=== PATIENT | female | born 1990 | race American Indian/Alaskan Native ===

== ENCOUNTER 2018-02-13 09:11 | Emergency (ER) | payer MEDICAID, SELFPAY ==
[2018-02-13] VITALS (7 sets, daily range): BP systolic 132–163; BP diastolic 85–114; PULSE 81–103; RESP 16–20; TEMP 36.8; O2SAT 95–100
[2018-02-13 10:08] LABS: Add Manual Diff / Slide Review NO; Eosinophils Percent Auto 2.9 % (2-4); Hematocrit 36.6 % (36-46); Hemoglobin 12.1 g/dL (12.0-16.0); Lymphocytes Percent Auto 19.2 % (25-40); Mean Corpuscular HGB Conc 33.2 % (30-36); Mean Corpuscular Hemoglobin 28.7 PG (26-34); Mean Corpuscular Volume 86.5 fL (80-100); Monocytes Percent Auto 5.4 % (3-14); Neutrophils Absolute Auto 5800 /uL (3000-5900); Neutrophils Percent Auto 71.5 % (50-75); Platelet Count 418 X10^3/uL (150-400); Red Blood Cell Count 4.23 X10^6/uL (4.0-5.2); Red Cell Distribution Width 16.4 % (11.6-14.8); White Blood Cell Count 8.1 X10^3/uL (4.5-11.0)
[2018-02-13 10:13] LABS: Alanine Aminotransferase 15 IU/L (9-52); Albumin 4.2 g/dL (3.5-5.0); Albumin Globulin Ratio 1.5 (1.0-2.8); Alkaline Phosphatase 107 U/L (38-126); Aspartate Aminotransferase 38 IU/L (14-36); Bilirubin Total 0.6 mg/dL (0.2-1.3); Blood Urea Nitrogen 7 mg/dL (7-17); Calcium 8.2 mg/dL (8.4-10.2); Carbon Dioxide 25 mmol/L (22-32); Chloride 97 mmol/L (98-107); Estimated Glomerular Filt Rate > 60.0 mL/min (>60); Ethanol (ETOH) 223 mg/dL; Globulin 2.8 g/dL (1.7-4.1); Glucose 399 mg/dL (70-100); HEMOLYSIS 23 (0-50); Potassium 3.9 mmol/L (3.4-5.1); Sodium 139 mmol/L (137-145)
--- NOTE | 2018-02-13 10:25 | ED.ALCOHOL ---
HPI - Alcohol General Chief Complaint: Toxicology Problem Stated Complaint: REPEATED SEIZURES,ALCOHOL WITHDRAWL Time Seen by Provider: 02/13/18 10:06 Source: patient and family (significant other) Mode of arrival: ambulatory Limitations: no limitations History of Present Illness HPI narrative: This is a 27-year-old female who comes to the emergency department for concern for alcohol withdrawal. Patient states she had been sober for 8 months. She started drinking on Saturday and has been drinking about a L of beer daily and about 150 mL of vodka daily. Her last drink was about 24 hr ago. She states this morning she went to lay down on the bed because she was feeling shaky Um and states that she fell off the bed and had seizure-like activity according to her significant other. She was sort of shaking having some foaming at the mouth. She states this happened once before which she went through alcohol withdrawal. Patient states she is also having some abdominal pain which she thinks is her pancreatitis. She has history of pancreatitis. To the epigastric right upper quadrant region. Patient is not having any fevers. She feels quite dry states she was trying to drink a lot a water. She is also an insulin-dependent diabetic and states that her sugar was high on her meter earlier today. She also has rheumatoid arthritis and takes methotrexate and Plaquenil which she states she has been taking. She is also supposed to take medication for high blood pressure but has not been taking it. She states her pressures were fine until she started going through withdrawals. Patient has had nausea and some vomiting. She has had some diarrhea. She has not noticed that she has had a lot of urinary symptoms. Patient states she has had an IUD that had to be removed surgically. complaint: alcohol withdrawal Last drink: hours (ago) (24) Related Data Home Medications Medication Instructions Recorded Confirmed Plaquenil 1 dose PO DIRECTED 02/13/18 02/13/18 folic acid 2 tab PO DAILY 02/13/18 02/13/18 hydrocodone-acetaminophen 1 - 2 tab PO Q6H PRN 02/13/18 02/13/18 ibuprofen 1 tab PO TIDWM 02/13/18 02/13/18 insulin glargine [Lantus Solostar 20 units SUBCUT BID 02/13/18 02/13/18 U-100 Insulin] insulin lispro [Humalog U-100 10 unit SUBCUT AC 02/13/18 02/13/18 Insulin] leflunomide 1 tab PO DAILY 02/13/18 02/13/18 levonorgestrel [Luisa] 1 ea INTRAUTERINE DIRECTED 02/13/18 02/13/18 lorazepam 1 dose PO DIRECTED 02/13/18 02/13/18 methotrexate sodium 250 mg PO DIRECTED 02/13/18 02/13/18 ondansetron HCl 1 tab PO Q6H PRN 02/13/18 02/13/18 Previous Rx's Medication Instructions Recorded lorazepam [Ativan] 1 mg PO .see instruction PRN #20 02/13/18 tab Allergies Allergy/AdvReac Type Severity Reaction Status Date / Time No Known Drug Allergies Allergy Verified 02/13/18 09:27 Review of Systems Review of Systems All systems reviewed & are unremarkable except as noted in HPI and below Constitutional Denies fever(s) Cardiovascular Denies chest pain, Denies irregular heart rhythm, Denies lightheadedness, Denies palpitations, Denies dyspnea, Denies dyspnea on exertion and Denies orthopnea Respiratory Denies cough, Denies dyspnea, Denies dyspnea on exertion and Denies wheezing Gastrointestinal Gastrointestinal: Reports abdominal pain, Denies constipation, Denies cramping, Reports nausea, Reports vomiting and Denies hematemesis Genitourinary Denies urinary frequency, Denies urinary hesitancy and Denies urinary urgency Neurologic Reports as per HPI Endocrine Denies palpitations Allergic/Immunologic Denies wheezing PFSH Social History Smoking Status: Never smoker Exam Initial Vital Signs Initial Vital Signs: Vital Signs Temperature 98.3 F 02/13/18 09:23 Pulse Rate 97 H 02/13/18 09:23 Respiratory Rate 20 02/13/18 09:23 Blood Pressure 163/106 H 02/13/18 09:23 Pulse Oximetry 100 02/13/18 09:23 Const General: cooperative and well developed Nutritional Appearance: well nourished Orientation: alert, awake, oriented x3 and not confused [facility] Head: normocephalic and atraumatic Ears: external ears normal and TM's normal bilaterally Nose: external nose normal and No nasal discharge Face and sinus: sinuses nontender, face symmetric, no sinus tenderness and No dry mucous membranes Mouth: oral mucosae normal and mucous membranes abnormal (dry) Teeth and gingiva: dentition normal Throat: tonsils normal and uvula midline Chest Chest: normal inspection of the chest Resp Effort & Inspection: normal respiratory effort, able to speak in complete sentences, no respiratory distress and no use of accessory muscles Auscultation: clear to auscultation bilaterally, no rales, no rhonchi and no wheezes Cardio Rate: regular rate Rhythm: regular rhythm Heart Sounds: no click, no gallops, no murmurs and no rubs Pulses: normal peripheral pulses GI Inspection: non-distended Palpation: soft, no hepatosplenomegaly, No guarding, No pulsatile mass and No tender Auscultation: normal bowel sounds General: bimanual renal exam normal bilaterally and No CVA tenderness Neuro General: alert, oriented x3, gait normal, no focal motor deficits and CN's II-XI intact bilaterally Cranial Nerves: CN's II-XI intact bilaterally Cognition: normal cognition Speech: speech normal Motor: muscle tone normal throughout, strength 5/5 throughout and No tremor Sensory Exam: no sensory deficits noted Course Orders Ordered: Discontinued Medications Magnesium Sulfate 2 gm/ Folic Acid 1 mg/ Thiamine HCl 100 mg / Multivitamins 10 ml/ Sodium Chloride 1,015.2 mls @ 125 mls/hr IV NOW ONE Stop: 02/13/18 18:30 Last Admin: 02/13/18 11:35 Dose: 125 mls/hr Sodium Chloride (Normal Saline 0.9%) 1,000 mls @ 1,000 mls/hr IV BOLUS PRN PRN Reason: Fluid replacement Last Infusion: 02/13/18 12:49 Dose: 0 mls/hr Admin: 02/13/18 10:48 Dose: 1,000 mls/hr Insulin Human Regular (Humulin R) 10 unit SUBCUT NOW ONE Stop: 02/13/18 11:09 Last Admin: 02/13/18 11:23 Dose: 10 unit Ketorolac Tromethamine (Toradol) 30 mg IV NOW ONE Stop: 02/13/18 10:49 Last Admin: 02/13/18 10:49 Dose: 30 mg Lorazepam (Ativan) 1 mg IV NOW ONE Stop: 02/13/18 10:29 Last Admin: 02/13/18 10:47 Dose: 1 mg Lorazepam (Ativan) 1 mg IV NOW ONE Stop: 02/13/18 12:50 Last Admin: 02/13/18 12:50 Dose: 1 mg Lorazepam (Ativan) 2 mg PO NOW ONE Stop: 02/13/18 15:25 Last Admin: 02/13/18 15:36 Dose: 2 mg Reevaluation(s) Reevaluation #1: patient has elevated BS, insulin ordered for glucose. Patient does not feel like she is going to have a seizure after ativan. Time: 11:09 Reevaluation #2: Patient is sleepy. Sugars have improved. Will continue to monitor and when more awake if vitals improved plan for d/c. Time: 14:27 Vital Signs - 8 hr 02/13/18 14:25 02/13/18 14:27 02/13/18 17:31 Pulse Rate 101 H 96 H 103 H Respiratory Rate 16 20 16 Blood Pressure 142/97 H Blood Pressure [Right Arm] 132/85 132/85 Pulse Oximetry 95 97 100 MDM - Alcohol Differential Diagnosis Differential diagnosis: Likely alcohol intoxication, other (dka vs hyperglycemia), alcohol withdrawal syndrome and alcohol withdrawal seizure Medical Records Attestation: I reviewed the patient's medical records. Lab Data Attestation: I reviewed the patient's lab results. Result diagrams: 02/13/18 09:40 02/13/18 10:37 Labs: Lab Results 02/13/18 02/13/18 02/13/18 Range/Units 09:40 09:40 09:45 WBC 8.1 (4.5-11.0) X10^3/uL RBC 4.23 (4.0-5.2) X10^6/uL Hgb 12.1 (12.0-16.0) g/dL Hct 36.6 (36-46) % MCV 86.5 (80-100) fL MCH 28.7 (26-34) PG MCHC 33.2 (30-36) % RDW 16.4 H (11.6-14.8) % Plt Count 418 H (150-400) X10^3/uL Neut % (Auto) 71.5 (50-75) % Lymph % (Auto) 19.2 L (25-40) % Antelope % (Auto) 5.4 (3-14) % Eos % (Auto) 2.9 (2-4) % Baso % (Auto) 1.0 (0-2) % Neut # (Auto) 5800 (4750-6859) /uL PT 11.9 (10.1-12.7) SECONDS INR 1.1 (0.9-1.3) Sodium 139 (137-145) mmol/L Potassium 3.9 (3.4-5.1) mmol/L Chloride 97 L (98-107) mmol/L Carbon Dioxide 25 (22-32) mmol/L BUN 7 (7-17) mg/dL Creatinine 0.50 L (0.52-1.04) mg/dL Estimated GFR > 60.0 (>60) mL/min BUN/Creatinine Ratio 14.0 (6-22) Glucose 399 H (70-100) mg/dL Calcium 8.2 L (8.4-10.2) mg/dL Phosphorus (2.5-4.5) mg/dL Magnesium (1.6-2.3) mg/dL Total Bilirubin 0.6 (0.2-1.3) mg/dL Conjugated Bilirubin (0.0-0.3) md/dL Unconjugated Bilirubin (0.0-1.1) mg/dL AST 38 H (14-36) IU/L ALT 15 (9-52) IU/L Alkaline Phosphatase 107 (38-126) U/L Total Protein 7.0 (6.3-8.2) g/dL Albumin 4.2 (3.5-5.0) g/dL Globulin 2.8 (1.7-4.1) g/dL Albumin/Globulin Ratio 1.5 (1.0-2.8) Lipase (23-300) U/L Urine Opiates Screen (Negative) Ur Oxycodone Screen (Negative) Urine Methadone Screen (Negative) Ur Barbiturates Screen (Negative) U Tricyclic Antidepress (Negative) Ur Phencyclidine Scrn (Negative) Ur Amphetamines Screen (Negative) U Methamphetamines Scrn (Negative) Ur MDMA Scrn (Ecstasy) (Negative) U Benzodiazepines Scrn (Negative) Urine Cocaine Screen (Negative) U Marijuana (THC) Screen (Negative) Ethyl Alcohol 223 mg/dL 02/13/18 02/13/18 Range/Units 10:30 10:37 WBC (4.5-11.0) X10^3/uL RBC (4.0-5.2) X10^6/uL Hgb (12.0-16.0) g/dL Hct (36-46) % MCV (80-100) fL MCH (26-34) PG MCHC (30-36) % RDW (11.6-14.8) % Plt Count (150-400) X10^3/uL Neut % (Auto) (50-75) % Lymph % (Auto) (25-40) % Antelope % (Auto) (3-14) % Eos % (Auto) (2-4) % Baso % (Auto) (0-2) % Neut # (Auto) (4755-5440) /uL PT (10.1-12.7) SECONDS INR (0.9-1.3) Sodium 138 (137-145) mmol/L Potassium 4.0 (3.4-5.1) mmol/L Chloride 97 L (98-107) mmol/L Carbon Dioxide 25 (22-32) mmol/L BUN 7 (7-17) mg/dL Creatinine 0.50 L (0.52-1.04) mg/dL Estimated GFR > 60.0 (>60) mL/min BUN/Creatinine Ratio 14.0 (6-22) Glucose 404 H (70-100) mg/dL Calcium 8.1 L (8.4-10.2) mg/dL Phosphorus 2.3 L (2.5-4.5) mg/dL Magnesium 1.6 (1.6-2.3) mg/dL Total Bilirubin 0.6 (0.2-1.3) mg/dL Conjugated Bilirubin 0.0 (0.0-0.3) md/dL Unconjugated Bilirubin 0.3 (0.0-1.1) mg/dL AST 39 H (14-36) IU/L ALT 18 (9-52) IU/L Alkaline Phosphatase 108 (38-126) U/L Total Protein 7.0 (6.3-8.2) g/dL Albumin 4.2 (3.5-5.0) g/dL Globulin 2.8 (1.7-4.1) g/dL Albumin/Globulin Ratio 1.5 (1.0-2.8) Lipase 16 L (23-300) U/L Urine Opiates Screen Negative (Negative) Ur Oxycodone Screen Negative (Negative) Urine Methadone Screen Negative (Negative) Ur Barbiturates Screen Negative (Negative) U Tricyclic Antidepress Negative (Negative) Ur Phencyclidine Scrn Positive H (Negative) Ur Amphetamines Screen Negative (Negative) U Methamphetamines Scrn Negative (Negative) Ur MDMA Scrn (Ecstasy) Negative (Negative) U Benzodiazepines Scrn Positive H (Negative) Urine Cocaine Screen Negative (Negative) U Marijuana (THC) Screen Negative (Negative) Ethyl Alcohol 229 mg/dL Point of Care Testing Test Results Negative Glucose POC 59 Urine Dip Bedside Urine Glucose 1000 mg/dl Bedside Urine Bilirubin - Negative Bedside Urine Ketone - Negative Urine Specific [place] 1.015 Bedside Urine Occult Blood +++ Bedside Urine pH 6.0 Bedside Urine Protein + 30 Bedside Urine Urobilinogen - Negative Bedside Urine Nitrite - Negative Bedside Urine Leukocytes +/- 15 Esterase MDM Narrative Medical decision making narrative: Patient has a significant other return to the emergency department is able to talk to him about exactly what happened. He did not actually witness any seizure activity he states that she knows that she was on the floor but otherwise he does not know if she had any seizures. He states that she had her last drink was this morning. Med that she has had similar symptoms before. They would be interested in a script for alcohol withdrawal prevention an outpatient if possible. Patient does not any DKA, she does not have low bicarb. Her hyperglycemia has improved after fluids as well as 10 units of insulin. Patient's sugar improved lb 120s. Patient was improving she then was given a little bit of Ativan p.o. is or plane to discharge her she did not wish to have inpatient detox. Patient got sleepy she did eat anything in her sugar dropped. She was given juice as well as some other food and maintain her sugar afterwards. Patient was discharged home with her significant other in a prescription for some Ativan for alcohol withdrawal. She states she has had Ativan before and did well. Discharge Plan Departure Patient Disposition: Home Clinical Impression: Alcohol withdrawal, Hyperglycemia Discharge Date/Time: 02/13/18 17:32 Interventions: ED Discharge Assessment Last Done: 02/13/18 17:31 Instructions: DI for Delirium Tremens Activity Restrictions/Additional Instructions: Follow-up with the resources provided by social Work for alcohol detox as an outpatient. You may return to the emergency department at any time if her having altered mental status, increasingly worse tremors, hallucinations or any seizure activity. If you're going to drink alcohol do not take the prescribed medication. If you do not drink alcohol take this medication as prescribed. This medication can make you sleepy so do not drive, perform hazards activities or make any major decisions while taking it. Prescriptions: New lorazepam [Ativan] 1 mg tablet 1 mg PO .see instruction PRN (Reason: alcohol withdrawal) Qty: 20 RF: 0 No Action ibuprofen 800 mg tablet 1 tab PO TIDWM RF: 0 hydrocodone-acetaminophen 5-325 mg tablet 1 - 2 tab PO Q6H PRN (Reason: Pain, Moderate) RF: 0 ondansetron HCl 4 mg tablet 1 tab PO Q6H PRN (Reason: Nausea) RF: 0 leflunomide 20 mg tablet 1 tab PO DAILY RF: 0 methotrexate sodium 2.5 mg tablet 250 mg PO DIRECTED RF: 0 folic acid 1 mg tablet 2 tab PO DAILY RF: 0 insulin lispro [Humalog U-100 Insulin] 100 unit/mL solution 10 unit subcut AC RF: 0 insulin glargine [Lantus Solostar U-100 Insulin] 100 unit/mL (3 mL) insulin pen 20 units subcut BID RF: 0 levonorgestrel [Luisa] 14 mcg/24 hour (3 years) Intrauterine Device 1 ea Intrauterine DIRECTED RF: 0 Plaquenil 1 dose PO DIRECTED RF: 0 lorazepam 1 dose PO DIRECTED RF: 0
--- NOTE | 2018-02-13 10:29 | PC.NURSE ---
States poss will have seizure, meds per MD verbal order. Fluids per MD. To [facility] as needs to void
[2018-02-13 10:35] LABS: INR 1.1 (0.9-1.3); Prothrombin Time 11.9 SECONDS (10.1-12.7)
[2018-02-13] MEDS: LORazepam 2 MG/ML SYRINGE 1 MG IV ×2 (10:47→12:50)
[2018-02-13 10:48] LABS: Alanine Aminotransferase 18 IU/L (9-52); Albumin 4.2 g/dL (3.5-5.0); Albumin Globulin Ratio 1.5 (1.0-2.8); Alkaline Phosphatase 108 U/L (38-126); Aspartate Aminotransferase 39 IU/L (14-36); Bilirubin Total 0.6 mg/dL (0.2-1.3); Bilirubin Unconjugated 0.3 mg/dL (0.0-1.1); Blood Urea Nitrogen 7 mg/dL (7-17); Calcium 8.1 mg/dL (8.4-10.2); Carbon Dioxide 25 mmol/L (22-32); Chloride 97 mmol/L (98-107); Estimated Glomerular Filt Rate > 60.0 mL/min (>60); Ethanol (ETOH) 229 mg/dL; Globulin 2.8 g/dL (1.7-4.1); Glucose 404 mg/dL (70-100); HEMOLYSIS 22 (0-50); Lipase 16 U/L (23-300); Magnesium 1.6 mg/dL (1.6-2.3); Phosphorous 2.3 mg/dL (2.5-4.5); Sodium 138 mmol/L (137-145)
[2018-02-13] MEDS: SODIUM CHLORIDE 0.9% 1,000 ML 1000 ML IV (10:48)
[2018-02-13] MEDS: KETOROLAC 60 MG/2 ML VIAL 30 MG IV (10:49)
[2018-02-13] MEDS: INSULIN REGULAR 100 UNIT/ML 3 ML VIAL 10 UNIT SUBCUT (11:23)
[2018-02-13 11:27] LABS: Urine Amphetamines Negative (Negative); Urine Barbiturates Negative (Negative); Urine Benzodiazepines Positive (Negative); Urine Cocaine Negative (Negative); Urine MDMA Negative (Negative); Urine Methadone Negative (Negative); Urine Methamphetamines Negative (Negative); Urine Morphine/Opi cutoff 2000 Negative (Negative); Urine Oxycodone Negative (Negative); Urine Phencyclidine Positive (Negative); Urine Tetrahydrocannabinol Negative (Negative); Urine Tricyclic Antidepressant Negative (Negative)
[2018-02-13] MEDS: MAGNESIUM SULFATE 2 GM, FOLIC ACID 1 MG, THIAMINE 100 MG, MULTIVITAMIN 10 ML in SODIUM ... IV (11:35)
--- NOTE | 2018-02-13 11:50 | PC.NURSE ---
Pt has trouble keeping l hand/wrist straight so fluids will go in. Will have 2nd IV started
--- NOTE | 2018-02-13 12:44 | PC.NURSE ---
Fluids running after 2nd IV started. Meds per MD order
--- NOTE | 2018-02-13 15:13 | CM.SWNOTE ---
ED HAND BOOKBINDER NOTE [facility] contacted pt's SO Fredy, by phone, . Pt was sound asleep. He was aware of several of the area resources, but not aware of [facility]. [phone]. Since this is an outpt setting for both chemical dependency and mental health and pt is , this might be a beneficial resource. Pt's SO shared that pt has been seen previously at [facility] in . He stated he was comfortable taking her home and will discuss this additional resource with her. It was mentioned by [facility] that child careis also provided there which mgiht be an additional benefit for them. It is expected that pt will discharge fromt he emeregency dept today. No further SW needs noted. Discharge Planning/Care Management ED Crisis Response Assessment Start: 02/13/18 15:09 Freq: Status: Active Protocol: Document 02/13/18 15:09 (Rec: 02/13/18 15:12 [id number]) ED Crisis Response Assessment HAND BOOKBINDER Assessment Type Substance Abuse Reason for HAND BOOKBINDER Referral Resources for chemical dependency. Referred by ED staff Presenting Problem ETOH withdrawal. According to Dr Ventura, pt stated that she had a seizure, but it was not witnessed and pt drank earlier today. She is currently sleeping and it was requested that I provide pt's SO with resources. Mental health diagnosis unknown Resources Provided ED HAND BOOKBINDER provided SO, Fredy with additional resources. He was aware of the Crisis Center and [facility] and pt had previously been seen at [facility] in [place]. Action taken Sent home: family/friends E
[2018-02-13] MEDS: LORazepam 0.5 MG TABLET 2 MG PO (15:36)
--- NOTE | 2018-02-13 17:30 | PC.NURSE ---
patient also given 2 garfield crackers with peanut butter and some cheese. patient alert and oriented x3. MD aware. no new orders at this time.
== END 2018-02-13 17:32 | disposition home or self-care (01) ==
PROVIDERS: Emergency Provider Emergency Medicine
DX: F10.239 Alcohol dependence with withdrawal, unspecified (principal); R73.9 Hyperglycemia, unspecified
CPT/HCPCS: 36591; 80053; 80076; 80305; 80320; 81003; 81025; 82962; 83690; 83735; 84100; 85025; 85610; 96361; 96374; 96375; 96376; 99284; 99285; J1885; J2060; J3475

== ENCOUNTER 2018-06-26 17:25 | Inpatient (IN) | payer MEDICAID, SELFPAY ==
[2018-06-26] VITALS (10 sets, daily range): BP systolic 118–149; BP diastolic 82–104; PULSE 92–102; RESP 11–16; TEMP 37.1; O2SAT 97–100; BMI 20.2
--- NOTE | 2018-06-26 18:05 | ED.OVERDOSE ---
HPI - Overdose General Chief Complaint: Toxicology Problem Stated Complaint: ALCOHOL WITHDRAWAL BACK PAIN PASSED OUT Time Seen by Provider: 06/26/18 18:04 Related Data Home Medications Medication Instructions Recorded Confirmed Plaquenil 1 dose PO DIRECTED 02/13/18 02/13/18 folic acid 2 tab PO DAILY 02/13/18 02/13/18 hydrocodone-acetaminophen 1 - 2 tab PO Q6H PRN 02/13/18 02/13/18 ibuprofen 1 tab PO TIDWM 02/13/18 02/13/18 insulin glargine [Lantus Solostar 20 units SUBCUT BID 02/13/18 02/13/18 U-100 Insulin] insulin lispro [Humalog U-100 10 unit SUBCUT AC 02/13/18 02/13/18 Insulin] leflunomide 1 tab PO DAILY 02/13/18 02/13/18 levonorgestrel [Luisa] 1 ea INTRAUTERINE DIRECTED 02/13/18 02/13/18 lorazepam 1 dose PO DIRECTED 02/13/18 02/13/18 methotrexate sodium 250 mg PO DIRECTED 02/13/18 02/13/18 ondansetron HCl 1 tab PO Q6H PRN 02/13/18 02/13/18 Previous Rx's Medication Instructions Recorded lorazepam [Ativan] 1 mg PO .see instruction PRN #20 02/13/18 tab Allergies Allergy/AdvReac Type Severity Reaction Status Date / Time No Known Drug Allergies Allergy Verified 06/26/18 17:38 PFSH Social History Smoking Status: Never smoker Exam Initial Vital Signs Initial Vital Signs: Vital Signs Temperature 98.7 F 06/26/18 17:38 Pulse Rate 97 H 06/26/18 17:38 Respiratory Rate 16 06/26/18 17:38 Blood Pressure 147/104 H 06/26/18 17:38 Pulse Oximetry 100 06/26/18 17:38 Course Vital Signs - 8 hr 06/26/18 17:38 Temperature 98.7 F Pulse Rate 97 H Respiratory Rate 16 Blood Pressure 147/104 H Pulse Oximetry 100 MDM - Overdose Lab Data Point of Care Testing Test Results Negative Discharge Plan Departure Prescriptions: No Action ibuprofen 800 mg tablet 1 tab PO TIDWM RF: 0 hydrocodone-acetaminophen 5-325 mg tablet 1 - 2 tab PO Q6H PRN (Reason: Pain, Moderate) RF: 0 ondansetron HCl 4 mg tablet 1 tab PO Q6H PRN (Reason: Nausea) RF: 0 leflunomide 20 mg tablet 1 tab PO DAILY RF: 0 methotrexate sodium 2.5 mg tablet 250 mg PO DIRECTED RF: 0 folic acid 1 mg tablet 2 tab PO DAILY RF: 0 insulin lispro [Humalog U-100 Insulin] 100 unit/mL solution 10 unit subcut AC RF: 0 insulin glargine [Lantus Solostar U-100 Insulin] 100 unit/mL (3 mL) insulin pen 20 units subcut BID RF: 0 levonorgestrel [Luisa] 14 mcg/24 hour (3 years) Intrauterine Device 1 ea Intrauterine DIRECTED RF: 0 Plaquenil 1 dose PO DIRECTED RF: 0 lorazepam 1 dose PO DIRECTED RF: 0 lorazepam [Ativan] 1 mg tablet 1 mg PO .see instruction PRN (Reason: alcohol withdrawal) Qty: 20 RF: 0
[2018-06-26 18:27] LABS: Amorphous Sediment Urine 1+; Bacteria Urine Occasional (0-1); Culture Indicated Urine Specimen Cultured; RBC Urine 0-1/HPF (0-5/HPF); Squamous Epithelial Cell Urine 1-5 /HPF; WBC Urine 5-10/HPF (0-5/HPF)
--- NOTE | 2018-06-26 18:32 | DI.RAD.S_ITS ---
PROCEDURE: XR CHEST 1V INDICATIONS: chest / back pain TECHNIQUE: One view of the chest was acquired. COMPARISON: None. FINDINGS: Surgical changes and devices: None. Lungs and pleura: Lungs are clear. No pleural effusions or pneumothorax. Mediastinum: Mediastinal contours appear normal. Heart size is normal. Bones and chest wall: No suspicious bony lesions. Overlying soft tissues appear unremarkable. IMPRESSION: No acute cardiopulmonary findings. Dictated by: Nuvia Becker M.D. on 06/26/2018 at 18:57 Approved by: Nuvia Becker M.D. on 06/26/2018 at 18:58
[2018-06-26 18:40] LABS: Add Manual Diff / Slide Review NO; Basophils Absolute Auto 0 /uL (0-100); Basophils Percent Auto 0.6 % (0-2); Eosinophils Absolute Auto 100 /uL (0-450); Hemoglobin 12.5 g/dL (12.0-16.0); Lymphocytes Absolute Auto 2900 /uL (1100-4500); Lymphocytes Percent Auto 39.5 % (25-40); Mean Corpuscular HGB Conc 32.9 % (30-36); Mean Corpuscular Hemoglobin 28.6 PG (26-34); Mean Corpuscular Volume 87.2 fL (80-100); Monocytes Absolute Auto 500 /uL (0-900); Neutrophils Absolute Auto 3700 /uL (1500-7000); Neutrophils Percent Auto 50.9 % (50-75); Platelet Count 419 X10^3/uL (150-400); Red Blood Cell Count 4.36 X10^6/uL (4.0-5.2); Red Cell Distribution Width 16.2 % (11.6-14.8); White Blood Cell Count 7.3 X10^3/uL (4.5-11.0)
[2018-06-26 18:46] LABS: Ethanol (ETOH) 23 mg/dL; Lactate Dehydrogenase 542 U/L (313-618); Lipase 22 U/L (23-300)
[2018-06-26 18:48] LABS: Alanine Aminotransferase 17 IU/L (9-52); Albumin 4.5 g/dL (3.5-5.0); Albumin Globulin Ratio 1.5 (1.0-2.8); Alkaline Phosphatase 109 U/L (38-126); Aspartate Aminotransferase 34 IU/L (14-36); BUN Creatinine Ratio 11.7 (6-22); Bilirubin Total 0.6 mg/dL (0.2-1.3); Blood Urea Nitrogen 7 mg/dL (7-17); Calcium 8.9 mg/dL (8.4-10.2); Carbon Dioxide 26 mmol/L (22-32); Chloride 97 mmol/L (98-107); Estimated Glomerular Filt Rate > 60.0 mL/min (>60); Globulin 3.1 g/dL (1.7-4.1); Glucose 290 mg/dL (70-100); HEMOLYSIS < 15 (0-50); Lipase 22 U/L (23-300); Potassium 4.3 mmol/L (3.4-5.1); Sodium 136 mmol/L (137-145); Total Protein 7.6 g/dL (6.3-8.2)
[2018-06-26] MEDS: LORazepam 2 MG/ML SYRINGE IV (18:49)
[2018-06-26] MEDS: THIAMINE 100 MG in DEXTROSE 5 % IN WATER 50 ML 204 ML IV (18:49)
[2018-06-26] MEDS: ONDANSETRON 4 MG/2 ML INJ IV (18:49)
[2018-06-26] MEDS: SODIUM CHLORIDE 0.9% 500 ML 1000 ML IV (18:50)
--- NOTE | 2018-06-26 19:00 | ED.ALCOHOL ---
HPI - Alcohol General Chief Complaint: Toxicology Problem Stated Complaint: ALCOHOL WITHDRAWAL BACK PAIN PASSED OUT Time Seen by Provider: 06/26/18 18:04 Source: patient Mode of arrival: ambulatory Limitations: no limitations History of Present Illness HPI narrative: 27-year-old female, former smoker with extensive alcohol abuse history presents with a chief complaint of shaking, agitation, epigastric pain, and thinks she has pancreatitis. Patient has extensive history of binge drinking and multiple episodes of DTs and is even had seizures. Her last visit to rehab was a few years ago. She does not drink constantly but instead binge drinks heavily at various occasions. She started drinking heavily a few days ago and stopped about 24 hr ago. She started developing significant epigastric pain and is concerned that she has another episode of pancreatitis. Additionally the patient states that she is having a bit of a headache and nausea as well as sweating, shaking, agitation and increasing heart rate. She states to the symptoms that she develops when going through alcohol withdrawal. Her abdominal pain is worse with palpation, eating or drinking. MD complaint: alcohol withdrawal Last drink: hours (ago) Chronic alcohol use: Yes Previous visits for alcohol intoxication: Yes Associated symptoms: nausea, vomiting, diaphoresis, tremors and abdominal pain Treatments prior to arrival: none Related Data Home Medications Medication Instructions Recorded Confirmed Plaquenil 1 dose PO DIRECTED 02/13/18 02/13/18 folic acid 2 tab PO DAILY 02/13/18 06/27/18 ibuprofen 1 tab PO TIDWM PRN 02/13/18 06/27/18 insulin glargine [Lantus Solostar 15 units SUBCUT BID 02/13/18 06/27/18 U-100 Insulin] insulin lispro [Humalog U-100 10 unit SUBCUT AC 02/13/18 06/27/18 Insulin] levonorgestrel [Luisa] 1 ea INTRAUTERINE DIRECTED 02/13/18 06/27/18 lorazepam 1 dose PO DIRECTED 02/13/18 06/27/18 methotrexate sodium 250 mg PO DIRECTED 02/13/18 02/13/18 ondansetron HCl 1 tab PO Q6H PRN 02/13/18 02/13/18 gabapentin 900 mg PO BEDTIME PRN 06/27/18 06/27/18 methotrexate sodium 1 tab PO BEDTIME 06/27/18 06/27/18 Allergies Allergy/AdvReac Type Severity Reaction Status Date / Time No Known Drug Allergies Allergy Verified 06/26/18 17:38 Review of Systems Constitutional Reports body ache(s), Reports chills, Denies fever(s), Denies lethargy and Denies weakness Eyes Denies change in vision, Denies eye discharge, Denies irritation and Denies loss of vision ENT Ears, Nose, Mouth, and Throat: Denies change in voice, Denies neck pain and Denies sore throat Cardiovascular Denies chest pain, Reports irregular heart rhythm, Reports lightheadedness, Denies palpitations, Denies dyspnea, Denies dyspnea on exertion and Denies orthopnea Respiratory Denies cough, Denies dyspnea, Denies dyspnea on exertion and Denies wheezing Gastrointestinal Gastrointestinal: Reports abdominal pain, Denies change in bowel habits, Denies diarrhea, Reports nausea and Denies vomiting Genitourinary Denies hematuria, Denies flank pain, Denies urinary incontinence and Denies urinary urgency Musculoskeletal Denies neck pain Integumentary/Breasts Denies pruritus, Denies erythema, Denies rash and Denies wounds Comments: sweating Neurologic Denies confusion, Denies loss of vision, Reports other visual disturbances and Denies weakness Psychiatric Reports anxiety, Reports change in appetite, Denies confusion, Denies depression, Reports paranoia, Reports visual hallucinations, Reports hallucinations, Denies homicidal ideation and Denies suicidal ideation Endocrine Denies palpitations Hematologic/Lymphatic Denies easy bruising Allergic/Immunologic Denies wheezing [facility] Medical History Alcoholism (Acute) DKA (diabetic ketoacidoses) (Acute) Diabetes (Acute) Diabetic neuropathy (Acute) Pancreatitis (Acute) Rheumatoid arthritis (Acute) Social History household members: significant other and children Smoking Status: Never smoker Social History household members: significant other and children Smoking Status: Never smoker Exam Narrative Exam Narrative: GENERAL: 19-year-old female appears unwell. She is clearly agitated and has resting tremors HEAD: Atraumatic. Normocephalic. No temporal or scalp tenderness. EYES: Pupils equal round and reactive. Extraocular motions intact. No scleral icterus. No injection or drainage. ENT: Nose without bleeding, purulent drainage or septal hematoma. Throat without erythema, tonsillar hypertrophy or exudate. Uvula midline. Airway patent. NECK: Trachea midline. No JVD or lymphadenopathy. Supple, nontender, no meningeal signs. CARDIOVASCULAR: Tachycardic rate but regular rhythm without murmurs, gallops, or rubs. RESPIRATORY: Clear to auscultation. Breath sounds equal bilaterally. No wheezes, rales, or rhonchi. GASTROINTESTINAL: Abdomen soft, tender in the epigastrium, nondistended. No hepato-splenomegaly, or palpable masses. No guarding. EXTREMITIES: No clubbing, cyanosis, or edema. No joint tenderness, effusion, or edema noted. BACK: Nontender without deformity or crepitance. No flank tenderness. NEURO: AOx3. SKIN: No rash or erythema. Initial Vital Signs Initial Vital Signs: Vital Signs Temperature 98.7 F 06/26/18 17:38 Pulse Rate 97 H 06/26/18 17:38 Respiratory Rate 16 06/26/18 17:38 Blood Pressure 147/104 H 06/26/18 17:38 Pulse Oximetry 100 06/26/18 17:38 Course Orders Ordered: ED Orders 06/26/18 23:46 Education, smoking cessation ONGOING 06/26/18 23:51 Consult to Discharge Planning Routine Consult to Press Catcher Routine 06/26/18 23:52 Consult to Dietitian, Adult Routine 06/27/18 US abdomen complete Routine Hemoglobin A1C % Routine 06/27/18 05:00 Basic Metabolic Panel DAILY Complete Blood Count AUTO DIFF DAILY 06/28/18 05:00 Basic Metabolic Panel DAILY Complete Blood Count AUTO DIFF DAILY 06/29/18 05:00 Basic Metabolic Panel DAILY Complete Blood Count AUTO DIFF DAILY 06/30/18 05:00 Basic Metabolic Panel DAILY Complete Blood Count AUTO DIFF DAILY Acetaminophen (Tylenol) 650 mg PO Q6HR PRN PRN Reason: As Needed for Fever/Mild Pain Dextrose (D50w) 25 gm IV PRN PRN; Protocol PRN Reason: Hypoglycemia Enoxaparin Sodium (Lovenox) 40 mg SUBCUT DAILY [facility] Folic Acid (Folic Acid) 2 mg PO DAILY [facility] Dextrose/Sodium Chloride (Dextrose 5%-0.9% Ns) 1,000 mls @ 100 mls/hr IV CONT TARIK Last Admin: 06/27/18 01:15 Dose: 100 mls/hr Insulin Aspart (Novolog Flexpen) 0 unit SUBCUT ACHS TARIK; Protocol Insulin Glargine (Lantus Solostar (Pen)) 15 unit SUBCUT BID TARIK Lorazepam (Ativan) 0 mg IV CIWAPRN PRN; Protocol PRN Reason: Alcohol Withdrawal Ondansetron HCl (Zofran Odt) 4 mg PO Q8HR PRN PRN Reason: Nausea And Vomiting Pantoprazole Sodium (Protonix) 20 mg PO 0600 TARIK Thiamine HCl (Vitamin B-1) 100 mg PO DAILY TARIK Discontinued Medications Sodium Chloride (Normal Saline 0.9%) 500 mls @ 1,000 mls/hr IV BOLUS ONE Stop: 06/26/18 18:59 Last Infusion: 06/26/18 20:18 Dose: 0 mls/hr Admin: 06/26/18 18:50 Dose: 1,000 mls/hr Thiamine HCl 100 mg/ Dextrose 51 mls @ 204 mls/hr IV NOW ONE Stop: 06/26/18 18:33 Last Infusion: 06/26/18 19:14 Dose: 0 mls/hr Admin: 06/26/18 18:49 Dose: 204 mls/hr Sodium Chloride (Normal Saline 0.45%) 1,000 mls @ 100 mls/hr IV CONT TARIK Last Admin: 06/27/18 01:49 Dose: Lorazepam (Ativan) 2 mg IV NOW ONE Stop: 06/26/18 18:31 Last Admin: 06/26/18 18:49 Dose: 2 mg Ondansetron HCl (Zofran) 4 mg IV NOW ONE Stop: 06/26/18 18:31 Last Admin: 06/26/18 18:49 Dose: 4 mg Reevaluation(s) Reevaluation #1: Patient shows tremendous improvement with Ativan and thiamine. The repeat evaluation of CIWA score shows remarkable improvement. She feels a bit agitated and anxious still off and feels like she has tremors but they are no longer visible. She is no longer diaphoretic is able to speak much more clearly. Her heart rate has dropped from the 120s to the upper 90s. Consultations Consultation #1: Hospitalist is happy to accept this patient on his service. Vital Signs - 8 hr 06/26/18 20:11 06/26/18 20:30 06/26/18 21:47 Temperature Pulse Rate 97 H 102 H 101 H Respiratory Rate 14 15 13 Blood Pressure Blood Pressure [Left Arm] 130/96 H 128/83 129/92 H Pulse Oximetry 100 99 06/26/18 22:00 06/26/18 22:30 06/26/18 23:00 Temperature Pulse Rate 100 H 93 H 92 H Respiratory Rate 16 11 L 13 Blood Pressure Blood Pressure [Left Arm] 131/102 H 131/102 H 131/85 Pulse Oximetry 100 97 97 06/27/18 00:13 06/27/18 00:14 06/27/18 00:20 Temperature 98.0 F Pulse Rate 103 H 93 H 91 H Respiratory Rate 17 15 15 Blood Pressure 126/84 126/90 Blood Pressure [Left Arm] 126/84 Pulse Oximetry 95 93 96 06/27/18 00:30 Temperature Pulse Rate Respiratory Rate Blood Pressure Blood Pressure [Left Arm] Pulse Oximetry 99 MDM - Alcohol Medical Records Attestation: I reviewed the patient's medical records. Lab Data Attestation: I reviewed the patient's lab results. Result diagrams: 06/26/18 18:04 06/26/18 18:04 Labs: Lab Results 06/26/18 06/26/18 06/26/18 Range/Units 18:04 18:04 18:04 WBC 7.3 (4.5-11.0) X10^3/uL RBC 4.36 (4.0-5.2) X10^6/uL Hgb 12.5 (12.0-16.0) g/dL Hct 38.0 (36-46) % MCV 87.2 (80-100) fL MCH 28.6 (26-34) PG MCHC 32.9 (30-36) % RDW 16.2 H (11.6-14.8) % Plt Count 419 H (150-400) X10^3/uL Neut % (Auto) 50.9 (50-75) % Lymph % (Auto) 39.5 (25-40) % [place] % (Auto) 7.0 (3-14) % Eos % (Auto) 2.0 (2-4) % Baso % (Auto) 0.6 (0-2) % Neut # (Auto) 3700 (1029-9740) /uL Lymph # (Auto) 2900 (3930-6627) /uL [place] # (Auto) 500 (0-900) /uL Eos # (Auto) 100 (0-450) /uL Baso # (Auto) 0 (0-100) /uL Sodium 136 L (137-145) mmol/L Potassium 4.3 (3.4-5.1) mmol/L Chloride 97 L (98-107) mmol/L Carbon Dioxide 26 (22-32) mmol/L BUN 7 (7-17) mg/dL Creatinine 0.60 (0.52-1.04) mg/dL Estimated GFR > 60.0 (>60) mL/min BUN/Creatinine Ratio 11.7 (6-22) Glucose 290 H (70-100) mg/dL Calcium 8.9 (8.4-10.2) mg/dL Total Bilirubin 0.6 (0.2-1.3) mg/dL AST 34 (14-36) IU/L ALT 17 (9-52) IU/L Alkaline Phosphatase 109 (38-126) U/L Lactate Dehydrogenase 542 (313-618) U/L Total Protein 7.6 (6.3-8.2) g/dL Albumin 4.5 (3.5-5.0) g/dL Globulin 3.1 (1.7-4.1) g/dL Albumin/Globulin Ratio 1.5 (1.0-2.8) Lipase 22 L 22 L (23-300) U/L Urine RBC (0-5/HPF) Urine WBC (0-5/HPF) Ur Squamous Epith Cells Amorphous Sediment Urine Bacteria (None) Ur Culture Indicated? Urine Opiates Screen (Negative) Ur Oxycodone Screen (Negative) Urine Methadone Screen (Negative) Ur Barbiturates Screen (Negative) U Tricyclic Antidepress (Negative) Ur Phencyclidine Scrn (Negative) Ur Amphetamines Screen (Negative) U Methamphetamines Scrn (Negative) Ur MDMA Scrn (Ecstasy) (Negative) U Benzodiazepines Scrn (Negative) Urine Cocaine Screen (Negative) U Marijuana (THC) Screen (Negative) Ethyl Alcohol 23 mg/dL 06/26/18 06/26/18 Range/Units 18:05 18:05 WBC (4.5-11.0) X10^3/uL RBC (4.0-5.2) X10^6/uL Hgb (12.0-16.0) g/dL Hct (36-46) % MCV (80-100) fL MCH (26-34) PG MCHC (30-36) % RDW (11.6-14.8) % Plt Count (150-400) X10^3/uL Neut % (Auto) (50-75) % Lymph % (Auto) (25-40) % [place] % (Auto) (3-14) % Eos % (Auto) (2-4) % Baso % (Auto) (0-2) % Neut # (Auto) (7829-0067) /uL Lymph # (Auto) (0343-6198) /uL [place] # (Auto) (0-900) /uL Eos # (Auto) (0-450) /uL Baso # (Auto) (0-100) /uL Sodium (137-145) mmol/L Potassium (3.4-5.1) mmol/L Chloride (98-107) mmol/L Carbon Dioxide (22-32) mmol/L BUN (7-17) mg/dL Creatinine (0.52-1.04) mg/dL Estimated GFR (>60) mL/min BUN/Creatinine Ratio (6-22) Glucose (70-100) mg/dL Calcium (8.4-10.2) mg/dL Total Bilirubin (0.2-1.3) mg/dL AST (14-36) IU/L ALT (9-52) IU/L Alkaline Phosphatase (38-126) U/L Lactate Dehydrogenase (313-618) U/L Total Protein (6.3-8.2) g/dL Albumin (3.5-5.0) g/dL Globulin (1.7-4.1) g/dL Albumin/Globulin Ratio (1.0-2.8) Lipase (23-300) U/L Urine RBC 0-1/hpf (0-5/HPF) Urine WBC 5-10/hpf H (0-5/HPF) Ur Squamous Epith Cells 1-5 /hpf Amorphous Sediment 1+ Urine Bacteria Occasional (0-1) (None) Ur Culture Indicated? Specimen cultured Urine Opiates Screen Negative (Negative) Ur Oxycodone Screen Negative (Negative) Urine Methadone Screen Negative (Negative) Ur Barbiturates Screen Negative (Negative) U Tricyclic Antidepress Negative (Negative) Ur Phencyclidine Scrn Negative (Negative) Ur Amphetamines Screen Negative (Negative) U Methamphetamines Scrn Negative (Negative) Ur MDMA Scrn (Ecstasy) Negative (Negative) U Benzodiazepines Scrn Negative (Negative) Urine Cocaine Screen Negative (Negative) U Marijuana (THC) Screen Negative (Negative) Ethyl Alcohol mg/dL Point of Care Testing Test Results Negative Glucose POC 205 Urine Dip Bedside Urine Glucose 1000 mg/dl Bedside Urine Bilirubin - Negative Bedside Urine Ketone - Negative Urine Specific [place] 1.020 Bedside Urine Occult Blood +/- Bedside Urine pH 6.0 Bedside Urine Protein +/- 15 Bedside Urine Urobilinogen - Negative Bedside Urine Nitrite - Negative Bedside Urine Leukocytes - Negative Esterase Imaging Data Chest x-ray: Radiologist's impression: [address] [address] XRay Report Signed Patient: CAROLYNN LYNNE RMR#: [id number] : 1990Acct:[id number] Age/Sex: 27 / FDate of Service: 06/26/18 Loc: ED Accession Number: [id number] Procedure: XR chest 1V Ordering Provider: Jj Mcclellan D.O. PROCEDURE: XR CHEST 1V INDICATIONS: chest / back pain TECHNIQUE: One view of the chest was acquired. COMPARISON: None. FINDINGS: Surgical changes and devices: None. Lungs and pleura: Lungs are clear. No pleural effusions or pneumothorax. Mediastinum: Mediastinal contours appear normal. Heart size is normal. Bones and chest wall: No suspicious bony lesions. Overlying soft tissues appear unremarkable. IMPRESSION: No acute cardiopulmonary findings. Dictated by: Nuvia Becker M.D. on 06/26/2018 at 18:57 Approved by: Nuvia Becker M.D. on 06/26/2018 at 18:58 [facility] Narrative Medical decision making narrative: Alcohol withdrawal considered highly likely given the timing of the symptoms, the patient's history, CIWA score, or response to benzodiazepines Pancreatitis and biliary disease considered but thought less likely given lack of abnormal labs. Patient initial CIWA score quite elevated making it unsafe to discharge patient home on Ativan or Librium taper. Discharge Plan Departure Patient Disposition: Admitted As Inpatient Clinical Impression: Alcohol withdrawal syndrome Discharge Date/Time: 06/27/18 00:16 Interventions: ED Discharge Assessment Last Done: 06/27/18 00:14 Admit Date/Time: 06/26/18 22:33 Admit Provider: Kolton Salinas
[2018-06-26 19:34] LABS: Urine Amphetamines Negative (Negative); Urine Barbiturates Negative (Negative); Urine Benzodiazepines Negative (Negative); Urine Cocaine Negative (Negative); Urine MDMA Negative (Negative); Urine Methadone Negative (Negative); Urine Methamphetamines Negative (Negative); Urine Morphine/Opi cutoff 2000 Negative (Negative); Urine Oxycodone Negative (Negative); Urine Phencyclidine Negative (Negative); Urine Tetrahydrocannabinol Negative (Negative); Urine Tricyclic Antidepressant Negative (Negative)
[2018-06-27] VITALS (12 sets, daily range): BP systolic 126–154; BP diastolic 84–96; PULSE 75–103; RESP 15–90; TEMP 36.6–36.8; O2SAT 93–100; BMI 20.2; BMI 21.0
--- NOTE | 2018-06-27 | DI.US.S_ITS ---
PROCEDURE: US ABDOMEN COMPLETE INDICATIONS: PAIN; ETOH ABUSE TECHNIQUE: Real-time scanning was performed of the abdominal and retroperitoneal organs, with image documentation. COMPARISON: None. FINDINGS: Liver: Liver is normal in size and homogeneous in echotexture. Gallbladder: The gallbladder wall measures 2.0 mm in diameter. No stones, sludge, pericholecystic fluid, or sonographic Lundberg sign. Biliary ducts: Intrahepatic bile ducts are non-dilated. Extrahepatic bile duct caliber measures 4.3 mm. Normal is 6-7 mm or less in diameter, or 10 mm or less post-cholecystectomy. Pancreas: Visualized portions of the pancreas are sonographically normal. Spleen: Spleen is normal in size and homogeneous in echotexture. Kidneys: Kidneys are normal in size and echotexture. Right kidney measures 11.8 cm long; left kidney measures 7.3 cm long. No hydronephrosis or nephrolithiasis. No solid masses. Aorta: Visualized aorta is normal in caliber at less than 3 cm. Iliacs: Proximal common iliac arteries are normal in caliber at less than 2.5 cm. IVC: Intrahepatic inferior vena cava is patent. Miscellaneous: No free abdominal fluid. IMPRESSION: 1. No cholelithiasis or findings to suggest choledocholithiasis or acute cholecystitis. 2. Atrophic left kidney. Dictated by: Nuvia Becker M.D. on 06/27/2018 at 9:00 Approved by: Nuvia Becker M.D. on 06/27/2018 at 9:01
--- NOTE | 2018-06-27 00:14 | P.HP_ITS ---
History of Present Illness Date Patient Seen: 06/27/18 Time Patient Seen: 00:47 Chief complaint: ALCOHOL WITHDRAWAL BACK PAIN PASSED OUT Narrative: This is a 27-year-old female patient with a history of a alcohol abuse, diabetes, rheumatoid arthritis and neuropathy who presents to the ER today in acute alcohol withdrawal. The patient reports that she has been drinking heavily for the last 5 days and stopped drinking 36 hr ago. Patient has a history of binge drinking the last episode she reports 1 year ago. She also has had prior DTs where she has had a seizure in 2013. The patient reports that she felt she was going to faint while going down stairs at her house and fell forward striking her upper lip and cheek sustaining abrasions but no loss consciousness. She complains of mild neck pain and back pain between the shoulder blades that she states that she had prior to the fall. She reports associated abdominal pain predominantly in the right upper quadrant but involving right lower and left upper quadrants. She states she has been vomiting and unable to keep anything down today. She was diagnosed with diabetes 3 years ago and uses Lantus 15 units twice daily and uses Humalog insulin 10 units with each meal. She reports her blood sugars are usually in the 300s and does not recall her last A1c value. She denies visual complications or renal problems but does endorse neuropathy that comes and goes for which she will take gabapentin 900 mg nightly as needed. The patient reports she has just begun seeing endocrinology but can not remember the provider. Upon arrival in the ER the patient was in acute DTs with a CIWA score of 29. She had heart rate of 97, respiratory rate of 20, blood pressure 163/106 and saturating She was given lorazepam per CIWA protocol, received a 1 L bolus of normal saline, Zofran for her nausea and thiamin. The patient's blood pressure normalized with lorazepam. Her CBC is unremarkable and has no left shift, her chemistry panel is normal except for a glucose of 290. Her tox screen was negative and she has an INR of 1.1. The patient had WBCs present on UA and positive for occasional bacteria which was reflexed to culture. Chest x-ray revealed no acute cardiopulmonary pathology. On encounter the patient is exceedingly drowsy requiring repeated stat tactile stimulation in order to complete the interview. Patient denies headaches or visual changes, no chest pain or shortness of breath, cough or wheezing. She reports no difficulty with bowel movements and no symptoms of frequency urgency or burning. Patient History Medical History Alcoholism (Acute) DKA (diabetic ketoacidoses) (Acute) Diabetes (Acute) Diabetic neuropathy (Acute) Pancreatitis (Acute) Rheumatoid arthritis (Acute) Social History household members: significant other and children Smoking Status: Never smoker Family & Social History Safety & Behavioral: Feels Safe in Current Yes Environment Tobacco & Substance use: Smoking Status Never smoker alcohol intake frequency 3 or more drinks per day Substance Use Type does not use Comment: Patient indicates she is single and lives in apartment. Family history is difficult to obtain related to the patient's level of sedation/ somnolence. Information obtained indicates no significant family history Smoking: Patient states never smoked Alcohol consumption: Repeated occurrence of binge drinking Drug use past recreational pharmaceuticals but no current use Advanced directives: Patient wishes to be full code. She is unable to designate a surrogate decision maker. Meds Home Medications Medication Instructions Recorded Confirmed Type Plaquenil 1 dose PO DIRECTED 02/13/18 06/27/18 History folic acid 2 tab PO DAILY 02/13/18 06/27/18 History ibuprofen 1 tab PO TIDWM PRN 02/13/18 06/27/18 History insulin glargine [Lantus Solostar 15 units SUBCUT BID 02/13/18 06/27/18 History U-100 Insulin] insulin lispro [Humalog U-100 10 unit SUBCUT AC 02/13/18 06/27/18 History Insulin] levonorgestrel [Luisa] 1 ea INTRAUTERINE DIRECTED 02/13/18 06/27/18 History lorazepam 1 dose PO DIRECTED 02/13/18 06/27/18 History methotrexate sodium 250 mg PO DIRECTED 02/13/18 06/27/18 History ondansetron HCl 1 tab PO Q6H PRN 02/13/18 06/27/18 History gabapentin 900 mg PO BEDTIME PRN 06/27/18 06/27/18 History methotrexate sodium 1 tab PO BEDTIME 06/27/18 06/27/18 History Allergies Allergy/AdvReac Type Severity Reaction Status Date / Time No Known Drug Allergies Allergy Verified 06/26/18 17:38 Review of Systems Review of Systems All systems reviewed & are unremarkable except as noted in HPI and below ( Extent of exam is significantly limited related to level sedation/somnolence. Ten point system reviewed and included in HPI as obtained.) Exam Vital Signs (past 8 hours): - 06/26/18 17:38 06/26/18 19:00 06/26/18 19:30 Temperature 98.7 F Pulse Rate 97 H 97 H 97 H Respiratory Rate 16 15 14 Blood Pressure 147/104 H Blood Pressure [Left Arm] 149/102 H 118/82 Pulse Oximetry 100 98 98 06/26/18 20:00 06/26/18 20:11 06/26/18 20:30 Temperature Pulse Rate 100 H 97 H 102 H Respiratory Rate 14 14 15 Blood Pressure Blood Pressure [Left Arm] 132/89 130/96 H 128/83 Pulse Oximetry 98 100 99 06/26/18 21:47 06/26/18 22:00 06/26/18 22:30 Temperature Pulse Rate 101 H 100 H 93 H Respiratory Rate 13 16 11 L Blood Pressure Blood Pressure [Left Arm] 129/92 H 131/102 H 131/102 H Pulse Oximetry 100 97 06/26/18 23:00 06/27/18 00:13 Temperature Pulse Rate 92 H 103 H Respiratory Rate 13 17 Blood Pressure Blood Pressure [Left Arm] 131/85 126/84 Pulse Oximetry 97 95 Oxygen Delivery Method Room Air Narrative Exam Narrative: General: Well developed, well nourished, in no acute distress. Skin: Warm, dry, pink, no rashes, operation to mid upper lip and left zygoma HEENT: Normocephalic, no hematoma, contusion or crepitus on palpation, PERRLA, EOMs intact with bilateral nystagmus, conjunctiva moist, sclera is anicteric, no ear pain, hearing grossly normal, no sinus tenderness to percussion, no rhinorrhea, oropharynx is moist and pink without lesions or exudate, uvula midline, posterior pharynx without inflammation, no cervical lymphadenopathy Neck: Supple, bilateral paracervical muscular tenderness on palpation, no step- offs, no masses, no thyromegaly or nodules, trachea midline, no JVD, no supraclavicular lymphadenopathy Cardiac: Regular rate and rhythm, S1-S2, no murmur, no gallops or rubs, 2+ radial pulse, 2+ dorsalis pedis pulse, capillary refill is brisk, no edema Chest: Symmetrical movement, breathing non labored, back pain on AP compression , no pain on lateral compression, no cough present, BS equal bilateral without coarseness, crackles or wheezes Abdomen: Soft, pain on palpation to epigastrium, right upper quadrant right lower quadrant in the left upper quadrant, mild guarding present, no organomegaly, no peritoneal signs, no flank or suprapubic pain, BS normal. Back: Normal curvature, pain on palpation mid thoracic spine without contusions or abrasions, no step-offs, no CVA tenderness on percussion Extremities: Full ROM, no synovial effusions or deformities, strength 5/5 and symmetrical Neuro: GCS is 13, with tactile stimulation the patient wakes to oriented to person place and time but drifts off med since, cranial nerves II-XII grossly intact, distal sensation intact to light touch, no paresthesias Psych: Flat affect, somnolent with short answers to questions, denies suicidal ideation Objective Labs Result Diagrams: 06/26/18 18:04 06/26/18 18:04 Labs: Laboratory Results - last 24 hr 06/26/18 06/26/18 06/26/18 18:04 18:04 18:04 WBC 7.3 RBC 4.36 Hgb 12.5 Hct 38.0 MCV 87.2 MCH 28.6 MCHC 32.9 RDW 16.2 H Plt Count 419 H Neut % (Auto) 50.9 Lymph % (Auto) 39.5 [place] % (Auto) 7.0 Eos % (Auto) 2.0 Baso % (Auto) 0.6 Neut # (Auto) 3700 Lymph # (Auto) 2900 [place] # (Auto) 500 Eos # (Auto) 100 Baso # (Auto) 0 Sodium 136 L Potassium 4.3 Chloride 97 L Carbon Dioxide 26 BUN 7 Creatinine 0.60 Estimated GFR > 60.0 BUN/Creatinine Ratio 11.7 Glucose 290 H Calcium 8.9 Total Bilirubin 0.6 AST 34 ALT 17 Alkaline Phosphatase 109 Lactate Dehydrogenase 542 Total Protein 7.6 Albumin 4.5 Globulin 3.1 Albumin/Globulin Ratio 1.5 Lipase 22 L 22 L Urine RBC Urine WBC Ur Squamous Epith Cells Amorphous Sediment Urine Bacteria Ur Culture Indicated? Urine Opiates Screen Ur Oxycodone Screen Urine Methadone Screen Ur Barbiturates Screen U Tricyclic Antidepress Ur Phencyclidine Scrn Ur Amphetamines Screen U Methamphetamines Scrn Ur MDMA Scrn (Ecstasy) U Benzodiazepines Scrn Urine Cocaine Screen U Marijuana (THC) Screen Ethyl Alcohol 23 06/26/18 06/26/18 18:05 18:05 WBC RBC Hgb Hct MCV MCH MCHC RDW Plt Count Neut % (Auto) Lymph % (Auto) [place] % (Auto) Eos % (Auto) Baso % (Auto) Neut # (Auto) Lymph # (Auto) [place] # (Auto) Eos # (Auto) Baso # (Auto) Sodium Potassium Chloride Carbon Dioxide BUN Creatinine Estimated GFR BUN/Creatinine Ratio Glucose Calcium Total Bilirubin AST ALT Alkaline Phosphatase Lactate Dehydrogenase Total Protein Albumin Globulin Albumin/Globulin Ratio Lipase Urine RBC 0-1/hpf Urine WBC 5-10/hpf H Ur Squamous Epith Cells 1-5 /hpf Amorphous Sediment 1+ Urine Bacteria Occasional (0-1) Ur Culture Indicated? Specimen cultured Urine Opiates Screen Negative Ur Oxycodone Screen Negative Urine Methadone Screen Negative Ur Barbiturates Screen Negative U Tricyclic Antidepress Negative Ur Phencyclidine Scrn Negative Ur Amphetamines Screen Negative U Methamphetamines Scrn Negative Ur MDMA Scrn (Ecstasy) Negative U Benzodiazepines Scrn Negative Urine Cocaine Screen Negative U Marijuana (THC) Screen Negative Ethyl Alcohol Assessment & Plan Plan: Assessment/Plan Narrative: This is a 27-year-old female who presents to the ER in acute alcohol withdrawals. Patient is admitted for control of withdrawal symptoms and prevention and monitoring for seizures with history of prior DTs and seizure. 1. Delirium tremens, present on admission, active -on arrival to the ER the patient reported visual and auditory hallucinations, had associated agitation, tremors and confusion -she was hypertensive on arrival at 163/106. -onset today 36 hr post last drink. -lorazepam per [facility] protocol initiated with improvement in symptomatology -seizure precautions are instituted 2. Diabetes type 2, insulin dependent, present on admission, active -blood sugar on admission is 290 consistent with uncontrolled blood sugar. -patient has just recently established with bag sewer. -patient reports poor food intake the last 24 hr related to abdominal pain and nausea with vomiting -patient will be NPO, IV D5 NS at 100 cc/hour -will continue Lantus 15 units twice daily with high range sliding scale q.6 hours -will obtain hemoglobin A1c -folate 1 mg daily, thiamin 100 mg daily 3. Abdominal pain, present on admission, active -positive for nausea and vomiting, patient will be NPO for gastric rest -will maintain hydration with D5 normal saline at 100 cc/hour -patient with low lipase at 22, LFTs are normal as is bilirubin -complete abdominal ultrasound due to significant abdominal tenderness on palpation 3. Rheumatoid arthritis, chronic, stable -patient has been taking methotrexate 2.5 mg daily. Medications held this time related to gastritis. 4. Neuropathy, chronic, stable -patient describes neuropathy most significantly left foot that comes and goes -no complaints of neuropathy or altered sensation on exam today -patient prescribed gabapentin 900 mg at bedtime on as-needed basis The patient is admitted to the hospital as an inpatient due to the severity of illness and risk for complications with an expected withdrawal course spanning greater than 2 midnights. Scores GCS [place] coma scale eye opening: To pressure [place] coma scale verbal response: Orientated [place] coma scale motor response: Obey commands Jessica coma scale total score: 13
[2018-06-27] MEDS: DEXTROSE 5%-0.9% NS 1,000 ML 100 ML IV (01:15)
--- NOTE | 2018-06-27 02:35 | PC.NURSE ---
0020 Admitted from ER for alcohol withdrawal, passed out & had a fall @ home. Medicated with 2 mg. of Lorazepam IVP in ER @ 1850 & pt. still drowsy & sleepy. Difficult admit needed constant stimulation to keep her awake to answer admission assessment. Medication was sent to the night pharmacy. C/O upper back pain, but declined her Tylenol. Seizures pad in place & CIWA score is 2 upon admission, pt. still drowsy. Will cont. POC & monitor.
[2018-06-27 06:09] LABS: Add Manual Diff / Slide Review NO; Basophils Absolute Auto 100 /uL (0-100); Basophils Percent Auto 0.7 % (0-2); Eosinophils Absolute Auto 300 /uL (0-450); Eosinophils Percent Auto 4.5 % (2-4); Hemoglobin 11.4 g/dL (12.0-16.0); Lymphocytes Absolute Auto 2800 /uL (1100-4500); Lymphocytes Percent Auto 37.1 % (25-40); Mean Corpuscular HGB Conc 33.7 % (30-36); Mean Corpuscular Hemoglobin 29.3 PG (26-34); Mean Corpuscular Volume 87.1 fL (80-100); Monocytes Absolute Auto 400 /uL (0-900); Monocytes Percent Auto 5.4 % (3-14); Neutrophils Absolute Auto 4000 /uL (1500-7000); Neutrophils Percent Auto 52.3 % (50-75); Platelet Count 353 X10^3/uL (150-400); Red Cell Distribution Width 16.2 % (11.6-14.8); White Blood Cell Count 7.6 X10^3/uL (4.5-11.0)
[2018-06-27 06:26] LABS: Blood Urea Nitrogen 10 mg/dL (7-17); Calcium 8.3 mg/dL (8.4-10.2); Carbon Dioxide 28 mmol/L (22-32); Chloride 103 mmol/L (98-107); Estimated Glomerular Filt Rate > 60.0 mL/min (>60); Glucose 274 mg/dL (70-100); HEMOLYSIS < 15 (0-50); Potassium 3.9 mmol/L (3.4-5.1); Sodium 136 mmol/L (137-145)
--- NOTE | 2018-06-27 06:35 | PC.NURSE ---
Pt. sound asleep since admitted to the floor, no anxiety & other S/S of alcohol withdrawal noted. Declined assistance to the BR, too sleepy. Will cont. POC & monitor.
[2018-06-27 06:46] LABS: Hemoglobin A1C% w Est Avg Glu 12.1 % (4.0-6.0)
[2018-06-27] MEDS: FOLIC ACID 1 MG TABLET 2 MG PO (09:17)
[2018-06-27] MEDS: ENOXAPARIN 40 MG/0.4 ML SYRINGE SUBCUT (09:17)
[2018-06-27] MEDS: PANTOPRAZOLE 20 MG TABLET PO (09:17)
[2018-06-27] MEDS: THIAMINE 100 MG TABLET PO (09:17)
[2018-06-27] MEDS: INSULIN ASPART 100 UNIT/ML INSULN PEN SUBCUT ×2 (09:22→21:02)
[2018-06-27] MEDS: INSULIN GLARGINE 100 UNIT/ML 3ML PEN 15 UNIT SUBCUT ×2 (09:23→21:01)
[2018-06-27] MEDS: SODIUM CHLORIDE 0.9% 1,000 ML 100 ML IV ×2 (10:54→21:00)
--- NOTE | 2018-06-27 11:47 | P.PN_ITS ---
Subjective Date Patient Seen: 06/27/18 Time Patient Seen: 11:45 Interval history: She is seen today to follow-up her alcohol withdrawal, delirium tremens, out of control insulin-dependent diabetes mellitus. The A1c is 12.1. An abdominal ultrasound has been done with results pending. When I see her she is still quite sedated but within several hours is awake and walking. Her blood sugars range from above 300 down to the 20s as we backed off on her D5 infusion this morning. Exam Vital Signs (past 8 hours): - 06/27/18 05:40 06/27/18 08:40 06/27/18 09:08 Temperature 97.8 F Pulse Rate 81 Respiratory Rate 15 Blood Pressure 135/92 H Pulse Oximetry 100 100 98 06/27/18 09:19 Temperature 98.3 F Pulse Rate 75 Respiratory Rate 16 Blood Pressure 151/96 H Pulse Oximetry 100 Oxygen Delivery Method Room Air Oxygen Flow Rate 0 Narrative Exam Narrative: Still quite sedated but able to be woken up and briefly interact and then falls back asleep. She appears to be oriented. Heart is regular rate and rhythm without murmur. Lungs are clear to auscultation bilaterally. Extremities have no ankle edema. Abdomen is soft, nontender, no organomegaly, bowel sounds are active. Objective Labs Result Diagrams: 06/27/18 05:27 06/27/18 05:27 Labs: Laboratory Results - last 24 hr 06/26/18 06/26/18 06/26/18 18:04 18:04 18:04 WBC 7.3 RBC 4.36 Hgb 12.5 Hct 38.0 MCV 87.2 MCH 28.6 MCHC 32.9 RDW 16.2 H Plt Count 419 H Neut % (Auto) 50.9 Lymph % (Auto) 39.5 [place] % (Auto) 7.0 Eos % (Auto) 2.0 Baso % (Auto) 0.6 Neut # (Auto) 3700 Lymph # (Auto) [address] [place] # (Auto) 500 Eos # (Auto) 100 Baso # (Auto) 0 Sodium 136 L Potassium 4.3 Chloride 97 L Carbon Dioxide 26 BUN 7 Creatinine 0.60 Estimated GFR > 60.0 BUN/Creatinine Ratio 11.7 Glucose 290 H Hemoglobin A1c Calcium 8.9 Total Bilirubin 0.6 AST 34 ALT 17 Alkaline Phosphatase 109 Lactate Dehydrogenase 542 Total Protein 7.6 Albumin 4.5 Globulin 3.1 Albumin/Globulin Ratio 1.5 Lipase 22 L 22 L Urine RBC Urine WBC Ur Squamous Epith Cells Amorphous Sediment Urine Bacteria Ur Culture Indicated? Urine Opiates Screen Ur Oxycodone Screen Urine Methadone Screen Ur Barbiturates Screen U Tricyclic Antidepress Ur Phencyclidine Scrn Ur Amphetamines Screen U Methamphetamines Scrn Ur MDMA Scrn (Ecstasy) U Benzodiazepines Scrn Urine Cocaine Screen U Marijuana (THC) Screen Ethyl Alcohol 23 06/26/18 06/26/18 06/27/18 18:05 18:05 05:27 WBC 7.6 RBC 3.90 L Hgb 11.4 L Hct 34.0 L MCV 87.1 MCH 29.3 MCHC 33.7 RDW 16.2 H Plt Count 353 Neut % (Auto) 52.3 Lymph % (Auto) 37.1 [place] % (Auto) 5.4 Eos % (Auto) 4.5 H Baso % (Auto) 0.7 Neut # (Auto) 4000 Lymph # (Auto) [address] [place] # (Auto) 400 Eos # (Auto) 300 Baso # (Auto) 100 Sodium Potassium Chloride Carbon Dioxide BUN Creatinine Estimated GFR BUN/Creatinine Ratio Glucose Hemoglobin A1c Calcium Total Bilirubin AST ALT Alkaline Phosphatase Lactate Dehydrogenase Total Protein Albumin Globulin Albumin/Globulin Ratio Lipase Urine RBC 0-1/hpf Urine WBC 5-10/hpf H Ur Squamous Epith Cells 1-5 /hpf Amorphous Sediment 1+ Urine Bacteria Occasional (0-1) Ur Culture Indicated? Specimen cultured Urine Opiates Screen Negative Ur Oxycodone Screen Negative Urine Methadone Screen Negative Ur Barbiturates Screen Negative U Tricyclic Antidepress Negative Ur Phencyclidine Scrn Negative Ur Amphetamines Screen Negative U Methamphetamines Scrn Negative Ur MDMA Scrn (Ecstasy) Negative U Benzodiazepines Scrn Negative Urine Cocaine Screen Negative U Marijuana (THC) Screen Negative Ethyl Alcohol 06/27/18 06/27/18 05:27 05:27 WBC RBC Hgb Hct MCV MCH MCHC RDW Plt Count Neut % (Auto) Lymph % (Auto) [place] % (Auto) Eos % (Auto) Baso % (Auto) Neut # (Auto) Lymph # (Auto) [place] # (Auto) Eos # (Auto) Baso # (Auto) Sodium 136 L Potassium 3.9 Chloride 103 Carbon Dioxide 28 BUN 10 Creatinine 0.50 L Estimated GFR > 60.0 BUN/Creatinine Ratio 20.0 Glucose 274 H Hemoglobin A1c 12.1 H Calcium 8.3 L Total Bilirubin AST ALT Alkaline Phosphatase Lactate Dehydrogenase Total Protein Albumin Globulin Albumin/Globulin Ratio Lipase Urine RBC Urine WBC Ur Squamous Epith Cells Amorphous Sediment Urine Bacteria Ur Culture Indicated? Urine Opiates Screen Ur Oxycodone Screen Urine Methadone Screen Ur Barbiturates Screen U Tricyclic Antidepress Ur Phencyclidine Scrn Ur Amphetamines Screen U Methamphetamines Scrn Ur MDMA Scrn (Ecstasy) U Benzodiazepines Scrn Urine Cocaine Screen U Marijuana (THC) Screen Ethyl Alcohol Assessment & Plan Plan: Assessment/Plan Narrative: This is a 27-year-old female who presents to the ER in acute alcohol withdrawals. Patient is admitted for control of withdrawal symptoms and prevention and monitoring for seizures with history of prior DTs and seizure. She is not in diabetic ketoacidosis, somewhat surprisingly. 1. Delirium tremens, present on admission, active -on arrival to the ER the patient reported visual and auditory hallucinations, had associated agitation, tremors and confusion -she was hypertensive on arrival at 163/106. -onset today 36 hr post last drink. -lorazepam per [facility] protocol initiated with improvement in symptomatology -seizure precautions are continued -mid day today she is waking up, asking to eat, appears to be quite alert and is walking in the room. 2. Diabetes type 2, insulin dependent, present on admission, active -blood sugar on admission is 290 consistent with uncontrolled blood sugar. No significant anion gap or acidosis noted. -patient has just recently established with an shearing machine operator. -patient reports poor food intake the last 24 hr related to abdominal pain and nausea with vomiting -patient will be resuming regular meal oral intake today. -will continue Lantus 15 units twice daily with high range sliding scale q.6 hours -Hemoglobin A1c of 12 point 1 today, consistent with very much out of control status. -folate 1 mg daily, thiamine 100 mg daily 3. Abdominal pain, present on admission, active -positive for nausea and vomiting, patient reports this has resolved. -will maintain hydration normal saline for now -patient with low lipase at 22, LFTs are normal as is bilirubin -complete abdominal ultrasound due to significant abdominal tenderness on palpation, with the results pending. 3. Rheumatoid arthritis, chronic, stable -patient has been taking methotrexate 2.5 mg daily. (That dosing is probably not correct) Medications held this time related to gastritis. 4. Neuropathy, chronic, stable -patient describes neuropathy most significantly left foot that comes and goes -no complaints of neuropathy or altered sensation on exam today -patient prescribed gabapentin 900 mg at bedtime on as-needed basis The patient was admitted to the hospital as an inpatient due to the severity of illness and risk for complications with an expected withdrawal course spanning greater than 2 midnights. Quality VTE Deep Vein Thrombosis/Pulmonary Embolism Present on Admission: No
[2018-06-27] MEDS: LORazepam 0.5 MG TABLET PO ×3 (12:11→21:52)
--- NOTE | 2018-06-27 12:20 | PC.NURSE ---
Pt resting in bed, has been up to bathroom to void with SBA. Stated she felt a little bit dizzy upon rising but that resolved. Urine is cloudy and andrea in color. Pt states she feels shaky and is diaphoretic. BG result was >32. Notified Dr. Pretty immediately and Pt was placed on [place] diet and given yogurt, pudding, and orange juice. Pt stated she was feeling better. BG rechecked with result of 351. Rechecked on Pt's other hand with result of 137. Dr. Pretty notified of new blood sugar totals. Pt stated she was feeling anxious-discussed with Dr. Pretty due to earlier somnolence and 0.5 Ativan was ordered and given. Pt appears comfortable and agrees to call for assistance as needed. Bed alarm on for safety.
--- NOTE | 2018-06-27 16:21 | CM.IDA ---
Discharge Planning/Care Management CM Discharge Assessment Start: 06/27/18 16:13 Freq: Status: Active Protocol: Document 06/27/18 16:13 JOSE CARLOS (Rec: 06/27/18 16:21 JOSE CARLOS [id number]) Discharge Planning Assessment Assigned Director Of Transportation JE Kapadia DPOA/Assigned Designee Name Fredy Siddiqui, friend Contact Information [phone] Advance Directives? No History Provided By Patient Medical Record Prior Living Arrangements Apartment/Condo Household Members significant other children Comment According to RN, pt has a 2 yo . Independent with ADL's Yes Is patient alert and oriented? Yes Barriers to Discharge Yes Comment Reviewed chart. Pt w/ longstanding h/o ETOH abuse, here w/out of control blood sugars and presents to the ER in w/d process. According to MARIFER Acosta, pt has been discussing drug rehab w/ RN. Pt has been to inpt treatment in the past. This METAL BUMPER attempted CD assessment today and pt woke up shortly then drifted into a deep sleep. Will attempt tomorrow. Additional Comment DCP unknown at this time. Attempt at inpt drug treatment vs close outpt plan ? depending on pt's permission and requests. Following closely. JE Moyer
[2018-06-27] MEDS: ACETAMINOPHEN 325 MG TABLET 650 MG PO (20:15)
--- NOTE | 2018-06-27 22:49 | PC.NURSE ---
1500- assumed care of pt from outgoing shift. pt asleep at this time. Pt bed alarm on. side rails upx4. and padded. Pt uses call light. bed alarm on. 1600- pt awoken. pt complains of headache. offered medications. discussed with md about changing orders. pt calls and waits for assistance. 2100- pt showered. pt states she is really anxious about this hospital stay and relapsing again if she doesn't have any medications. Pt is worried about her daughter and how she has alot of stuff she has to take care of at home. she is worried about when she will be discharged. pt tolerating fluids well. placed back on tele and fluids. given prn ativan for headache and anxiety and ciwa protocol.
[2018-06-28 00:05] VITALS: BP 130/88; PULSE 90; RESP 20; TEMP 36.6; O2SAT 100
[2018-06-28 00:15] VITALS: O2SAT 97
--- NOTE | 2018-06-28 01:37 | PC.NURSE ---
C/O feeling cold & clammy, states I usually feel hot/cold & sweaty if my blood sugar is low. Checked her CBG only 48, reported sometimes at home my blood sugar goes down to 18-26. Requested some apple juice, given cranberry & apple juice, pudding. Refused milk at this time, will monitor & rechecked her CBG.
[2018-06-28] MEDS: LORazepam 0.5 MG TABLET PO (01:58)
--- NOTE | 2018-06-28 01:59 | PC.NURSE ---
Reported to MISHA Salinas pt's. CBG @ 48 & given her cran-apple juice & pudding. Rechecked her CBG again & it's 137. Pt's. requested 0.5 mg. of Lorazepam PO for anxiety, admin. Will cont. POC & monitor.
[2018-06-28 05:20] VITALS: BP 139/91; PULSE 85; RESP 20; TEMP 36.7; O2SAT 99
[2018-06-28] MEDS: PANTOPRAZOLE 20 MG TABLET PO (05:30)
[2018-06-28] MEDS: ACETAMINOPHEN 325 MG TABLET 650 MG PO (05:32)
[2018-06-28 05:39] LABS: Add Manual Diff / Slide Review NO; Basophils Absolute Auto 0 /uL (0-100); Basophils Percent Auto 0.5 % (0-2); Eosinophils Absolute Auto 300 /uL (0-450); Eosinophils Percent Auto 3.6 % (2-4); Hematocrit 34.7 % (36-46); Hemoglobin 11.6 g/dL (12.0-16.0); Lymphocytes Absolute Auto 2300 /uL (1100-4500); Lymphocytes Percent Auto 24.5 % (25-40); Mean Corpuscular HGB Conc 33.4 % (30-36); Mean Corpuscular Hemoglobin 29.1 PG (26-34); Mean Corpuscular Volume 87.2 fL (80-100); Monocytes Absolute Auto 400 /uL (0-900); Monocytes Percent Auto 4.5 % (3-14); Neutrophils Absolute Auto 6300 /uL (1500-7000); Neutrophils Percent Auto 66.9 % (50-75); Platelet Count 391 X10^3/uL (150-400); Red Blood Cell Count 3.98 X10^6/uL (4.0-5.2); Red Cell Distribution Width 15.8 % (11.6-14.8); White Blood Cell Count 9.5 X10^3/uL (4.5-11.0)
[2018-06-28 05:43] LABS: Blood Urea Nitrogen 7 mg/dL (7-17); Calcium 8.6 mg/dL (8.4-10.2); Carbon Dioxide 27 mmol/L (22-32); Chloride 102 mmol/L (98-107); Estimated Glomerular Filt Rate > 60.0 mL/min (>60); Glucose 192 mg/dL (70-100); HEMOLYSIS < 15 (0-50); Potassium 3.9 mmol/L (3.4-5.1); Sodium 134 mmol/L (137-145)
[2018-06-28] MEDS: SODIUM CHLORIDE 0.9% 1,000 ML 100 ML IV (07:44)
[2018-06-28 07:45] VITALS: BP 132/100; PULSE 78; RESP 18; TEMP 36.6; O2SAT 100
[2018-06-28 07:47] VITALS: O2SAT 99
[2018-06-28] MEDS: ENOXAPARIN 40 MG/0.4 ML SYRINGE SUBCUT (08:50)
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
--- NOTE | 2018-06-28 11:38 | PM.DS.1 ---
History of Present Illness Chief complaint: ALCOHOL WITHDRAWAL BACK PAIN PASSED OUT Narrative: This is a 27-year-old female patient with a history of recurrent alcohol abuse necessitating hospital stays, subjectively once yearly, diabetes with daily insulin use which goes uncontrolled when she drinks, rheumatoid arthritis on methotrexate, and neuropathy who presented to the ER in acute alcohol withdrawal and acute hyperglycemia. The patient reported that she has been drinking [place]? heavily for the last 5 days and stopped drinking 36 hr prior to admission. Patient has a history of binge drinking the last episode she reports 1 year ago. She also has had prior DTs where she has had a seizure in 2013. The patient reports that she felt she was going to faint while going down stairs at her house and fell forward striking her upper lip and cheek sustaining abrasions but no loss consciousness. She has a history of chronic pancreatitis and upon admission complained of mild neck pain and back pain between the shoulder blades that she stated that she had prior to the fall. She reported associated abdominal pain predominantly in the right upper quadrant but involving right lower and left upper quadrants. She stated she has been vomiting and unable to keep anything down today. She was diagnosed with diabetes 3 years ago and uses Lantus 15 units twice daily and uses Humalog insulin 10 units with each meal. She reported her blood sugars are usually in the 300s and does not recall her last A1c value. She denies visual complications or renal problems but does endorse neuropathy that comes and goes for which she will take gabapentin 900 mg nightly as needed. The patient reported she has just begun seeing endocrinology but can not remember the provider. Upon arrival in the ER the patient was in acute DTs with a CIWA score of 29. She had heart rate of 97, respiratory rate of 20, blood pressure 163/106 and saturating She was given lorazepam per CIWA protocol, received a 1 L bolus of normal saline, Zofran for her nausea and thiamin. The patient's blood pressure normalized with lorazepam. Her CBC is unremarkable and has no left shift, her chemistry panel is normal except for a glucose of 290. Her tox screen was negative and she has an INR of 1.1. The patient had WBCs present on UA and positive for occasional bacteria which was reflexed to culture. Chest x-ray revealed no acute cardiopulmonary pathology. On encounter the patient is exceedingly drowsy requiring repeated stat tactile stimulation in order to complete the interview. Patient denies headaches or visual changes, no chest pain or shortness of breath, cough or wheezing. She reports no difficulty with bowel movements and no symptoms of frequency urgency or burning. During her hospital stay she had an abdominal ultrasound which revealed no cholelithiasis or acute pancreatitis. Her alcohol withdrawals were managed with benzodiazepine as per the [facility] protocol. Her facial abrasions and laceration showed no signs of acute infection. Her blood sugars fluctuated from the mid 400s to lows in the 40s-50s. Her A1c was 12.1. She had a low lipase throughout her hospitalization. On the day of discharge she was alert and sitting up in bed in stating that she had family visits to take care of. She has a 2-year-old son with a feeding tube managed by [facility]. They have an appointment this week to remove his feeding tube, and she ?had business to take care of to prepare for this visit?. She states that she is well connected and has support from the father of her child as well as support from the [facility]. She states she would like to be reconnected with her previous mental health counselor, and will work on that after taking care of her child this week. She also stated that after her previous discharge for alcohol withdrawals, she had increased anxiety upon returning home, and required Klonopin. Also upon discharge she stated that she did not have any pain, desire to drink, or DKA symptoms. Discharge Providers Date of admission: 06/26/18 22:33 Consults: 06/26/18 23:51 Consult to Discharge Planning Routine Comment: Consult to Quality Assurance Technician Routine Comment: recurrent binge drinking 06/26/18 23:52 Consult to Dietitian, Adult Routine Comment: uncontrolled diabetes Reason For Exam: uncontrolled diabetes Discharge provider: Solomon Pretty MD Discharge Date: 06/28/18 Summary Discharge Diagnosis: 1. Delirium tremens, present on admission, Resolved 2. Diabetes type 2, insulin dependent, present on admission, Stable 3. Abdominal pain, present on admission, Stable 3. Rheumatoid arthritis, chronic, stable 4. Neuropathy, chronic, stable Hospital Course: During her hospital stay she had an abdominal ultrasound which revealed no cholelithiasis or acute pancreatitis. Her alcohol withdrawals were managed with benzodiazepine as per the [facility] protocol. Her facial abrasions and laceration showed no signs of acute infection. Her blood sugars fluctuated from the mid 400s to lows in the 40s-50s. Her A1c was 12.1. She had a low lipase throughout her hospitalization. On the day of discharge she was alert and sitting up in bed in stating that she had family visits to take care of. She has a 2-year-old son with a feeding tube managed by [facility]. They have an appointment this week to remove his feeding tube, and she ?had business to take care of to prepare for this visit?. She states that she is well connected and has support from the father of her child as well as support from the [facility] and [facility]. She states she would like to be reconnected with her previous mental health counselor, and will work on that after taking care of her child this week. She also stated that after her previous discharge for alcohol withdrawals, she had increased anxiety upon returning home, and required Klonopin. Also upon discharge she stated that she did not have any pain, desire to drink, or DKA symptoms. Status at Discharge Functional status at discharge: independent ambulation Time Spent with Patient Greater than 30 minutes Exam Vital Signs (past 8 hours): - 06/28/18 05:20 06/28/18 07:45 06/28/18 07:47 Temperature 98.1 F 97.8 F Pulse Rate 85 78 Respiratory Rate 20 18 Blood Pressure 139/91 H 132/100 H Pulse Oximetry 99 100 99 Oxygen Delivery Method Room Air Oxygen Flow Rate 0 Narrative Exam Narrative: Upon discharge the patient was sitting up in bed comfortably, working on her computer. She has an abrasion on her left cheek and laceration covered with a bandage just above her lip. She is normocephalic with no sign of scleral icterus, jaundice, cyanosis. Eyes: PERRL, EOMI Neck: No lymphadenopathy or thyromegaly Lungs: clear to auscultation bilaterally without wheezes rales or rhonchi Cardio: Normally placed PMI, regular rate and rhythm with S1-S2 audible without clips rubs murmurs or gallops GI: Abdomen is soft, nontender, nondistended, with no evidence of hepatosplenomegaly, there is a negative Lundberg sign Skin: Abrasion evident on her cheek and laceration superior to her lip Extremities: Grossly normal Psych: Alert and oriented x3, with reasonable decision making capacity, behavior and judgment normal. Objective Labs Result Diagrams: 06/28/18 05:03 06/28/18 05:03 Labs: Laboratory Results - last 24 hr 06/28/18 06/28/18 05:03 05:03 WBC 9.5 RBC 3.98 L Hgb 11.6 L Hct 34.7 L MCV 87.2 MCH 29.1 MCHC 33.4 RDW 15.8 H Plt Count 391 Neut % (Auto) 66.9 Lymph % (Auto) 24.5 L [place] % (Auto) 4.5 Eos % (Auto) 3.6 Baso % (Auto) 0.5 Neut # (Auto) 6300 Lymph # (Auto) 2300 [place] # (Auto) 400 Eos # (Auto) 300 Baso # (Auto) 0 Sodium 134 L Potassium 3.9 Chloride 102 Carbon Dioxide 27 BUN 7 Creatinine 0.50 L Estimated GFR > 60.0 BUN/Creatinine Ratio 14.0 Glucose 192 H Calcium 8.6 Discharge Plan Discharge Plan Patient Disposition: Home Discharge comment: Please [facility] and Dr. Kelly in 1 week. Discharge Med Rec/Prescriptions Prescriptions: New clonazepam [Klonopin] 0.5 mg tablet 0.5 mg PO TID PRN (Reason: anxiety) Qty: 20 RF: 0 Continue methotrexate sodium 2.5 mg tablet 1 tab PO BEDTIME RF: 0 gabapentin 300 mg Capsule 900 mg PO BEDTIME PRN (Reason: Pain, Moderate) RF: 0 ibuprofen 800 mg tablet 1 tab PO TIDWM PRN (Reason: Pain (Scale Score 7-10)) RF: 0 ondansetron HCl 4 mg tablet 1 tab PO Q6H PRN (Reason: Nausea) RF: 0 folic acid 1 mg tablet 2 tab PO DAILY RF: 0 insulin lispro 100 unit/mL solution 10 unit subcut AC RF: 0 insulin glargine 100 unit/mL (3 mL) insulin pen 15 units subcut BID RF: 0 levonorgestrel [Luisa] 14 mcg/24 hour (3 years) Intrauterine Device 1 ea Intrauterine DIRECTED RF: 0 Plaquenil 1 dose PO DIRECTED RF: 0 Discontinued methotrexate sodium 2.5 mg tablet 250 mg PO DIRECTED RF: 0 lorazepam 1 dose PO DIRECTED RF: 0 Provider Discharge Instructions Diet: Regular Visit Report/Discharge Packet Instructions: Drug and Alcohol Withdrawal, Clonazepam (By mouth) Visit Report Forms: Stroke Signs & Symptoms Discharge Data Attending Provider: Kolton Salinas Admit Date/Time: 06/26/18 22:33 Discharges patient from system. Discharge Date/Time: 06/28/18 14:07 Quality VTE Deep Vein Thrombosis/Pulmonary Embolism Present on Admission: No
[2018-06-28 11:55] VITALS: BP 142/102; PULSE 76; RESP 20; TEMP 36.7; O2SAT 100
--- NOTE | 2018-06-28 14:00 | PC.NURSE ---
Discharge: IV dc'd intact. Tele dc'd. Given new script for Clonazepam. Reviewed home med list and discharge instructions thoroughly. She plans to follow up within 1 week and knows that she needs to schedule the appt herself. Verbalized understanding of d/c info and had all questions answered to her satisfaction. All belongings sent with patient including home med from pharmacy. Walked out to private vehicle accompanied by this publicity writer.
== END 2018-06-28 14:07 | disposition home or self-care (01) | DRG 897 ==
LOC: ED 22:25 → AC 22:34
PROVIDERS: Nurse Practitioner Family; Admitting Provider Nurse Practitioner Adult Health; Emergency Provider Emergency Medicine; Visit Provider Nurse Practitioner Adult Health
DX: F10.231 Alcohol dependence with withdrawal delirium (principal); E11.40 Type 2 diabetes mellitus with diabetic neuropathy, unspecified; Y90.1 Blood alcohol level of 20-39 mg/100 ml; R11.2 Nausea with vomiting, unspecified; M06.9 Rheumatoid arthritis, unspecified; Z79.4 Long term (current) use of insulin
CPT/HCPCS: 36415; 36591; 71045; 76700; 80048; 80053; 80305; 80320; 81003; 81015; 81025; 82962; 83036; 83615; 83690; 85025; 87077; 87086; 93005; 94760; 94762; 96361; 96365; 96375; 99284; J1650; J2060; J2405

== ENCOUNTER 2019-06-01 09:44 | Inpatient (IN) | payer MEDICAID, SELFPAY ==
[2018-06-27 00:30] VITALS: BMI 20.2
[2019-06-01] VITALS (19 sets, daily range): BP systolic 96–162; BP diastolic 49–113; PULSE 99–127; RESP 16–30; TEMP 36.9–37.9; O2SAT 99–100; BMI 18.1
--- NOTE | 2019-06-01 10:26 | ED_ITS ---
HPI - Nausea/Vomiting/Diarrhea General Chief complaint: Toxicology Problem Stated complaint: nausea/vomiting/back pain/mod. sob x1 day Time Seen by Provider: 06/01/19 10:13 Source: patient Mode of arrival: Ambulatory Limitations: no limitations History of Present Illness HPI Narrative: Patient comes emergency department complaining of nausea, vomiting, shortness of breath, and general malaise. She states that she is a insulin-dependent diabetic, and has missed a couple of doses of her insulin. She also states that she was drinking heavily this last week, with her last drink being May 30. She states that she began to feel bad last night and has felt progressively worse over the course the day. She denies any fevers or chills. No cough. No abdominal pain. No diarrhea. No sore throat. No other complaints at this time. Related Data Home Medications Medication Instructions Recorded Confirmed Luisa 1 ea INTRAUTERINE DIRECTED 02/13/18 06/01/19 Se- 19 (with docusate) 1 tab PO DAILY 06/01/19 06/01/19 albuterol sulfate [ProAir HFA] 1 - 2 puff INHALATION Q4-6H PRN 06/01/19 06/01/19 clonazepam 0.5 mg PO BID 06/01/19 06/01/19 hydroxychloroquine 200 mg PO DAILY 06/01/19 06/01/19 insulin lispro [Humalog KwikPen 8 unit SUBCUT TIDWM 06/01/19 06/01/19 Insulin] lisinopril 10 mg PO DAILY 06/01/19 06/01/19 methotrexate sodium 15 mg PO MOTU 06/01/19 06/01/19 piroxicam 20 mg PO DAILY 06/01/19 06/01/19 sulfasalazine 1,000 mg PO BID 06/01/19 06/01/19 Previous Rx's Medication Instructions Recorded insulin glargine [Lantus Solostar 10 unit SUBCUT BEDTIME 30 Days ml 06/02/19 U-100 Insulin] Allergies Allergy/AdvReac Type Severity Reaction Status Date / Time No Known Drug Allergies Allergy Verified 06/26/18 17:38 Review of Systems Constitutional Constitutional: Denies chills, Reports fatigue, Denies fever(s), Denies frequent falls, Denies lethargy and Denies weakness Eyes Eyes: Denies change in vision, Denies eye discharge, Denies irritation and Denies loss of vision ENT Ears, Nose, Mouth, and Throat: Denies change in voice, Denies dizziness, Denies neck pain, Denies sore throat and Denies throat swelling Cardiovascular Cardiovascular: Denies chest pain, Denies irregular heart rhythm, Denies lightheadedness, Denies palpitations, Reports dyspnea and Denies orthopnea Respiratory Respiratory: Denies cough, Reports dyspnea and Denies wheezing Gastrointestinal Gastrointestinal: Denies abdominal pain, Denies change in bowel habits, Denies diarrhea, Reports nausea and Reports vomiting Genitourinary Genitourinary: Denies hematuria, Denies flank pain, Denies urinary incontinence and Denies urinary urgency Musculoskeletal Musculoskeletal: Denies back pain, Denies muscle weakness, Denies neck pain, Denies numbness and Denies tingling Integumentary/Breasts Skin/Breast: Denies pruritus, Denies erythema, Denies rash and Denies wounds Neurologic Neurologic: Denies behavioral changes, Denies confusion, Denies dizziness, Denies frequent falls, Denies loss of vision, Denies numbness, Denies tingling and Denies weakness Psychiatric Psychiatric: Denies anxiety, Denies behavioral changes, Denies confusion, Denies depression, Denies homicidal ideation and Denies suicidal ideation Endocrine Endocrine: Reports fatigue, Denies flushing and Denies palpitations Hematologic/Lymphatic Hematologic/Lymphatic: Denies easy bruising Allergic/Immunologic Allergic/Immunologic: Denies urticaria, Denies throat swelling and Denies wheezing Patient History Medical History Alcoholism (Acute) Diabetes (Acute) Diabetic neuropathy (Acute) DKA (diabetic ketoacidoses) (Acute) Pancreatitis (Acute) Rheumatoid arthritis (Acute) Family History Father Alcoholism /alcohol abuse Mother Hypertension Stroke due to embolism of cerebellar artery Social History household members: significant other and children Smoking Status: Never smoker alcohol intake: current Smoking Status: Never smoker alcohol intake frequency: 3 or more drinks per day Substance Use Type: does not use Exam Initial Vital Signs Initial Vital Signs: Vital Signs Temperature 98.4 F 06/01/19 10:12 Pulse Rate 127 H 06/01/19 10:12 Respiratory Rate 28 H 06/01/19 10:12 Blood Pressure 116/82 06/01/19 10:12 Pulse Oximetry 100 06/01/19 10:12 Const General: cooperative and well developed Nutritional Appearance: thin Orientation: alert, awake, oriented x3 and not confused Other: Patient appears moderately ill and generally uncomfortable. HENIA Head: normocephalic and atraumatic Ears: external ears normal Nose: external nose normal and No nasal discharge Face and sinus: face symmetric and No dry mucous membranes Mouth: oral mucosae normal and moist mucous membranes Teeth and gingiva: dentition normal Eyes General: appearance normal, both eyes and all related structures Eyelids: eyelids normal Conjunctivae: conjunctivae normal Sclera: sclerae normal Pupils: PERRL EOM: EOM intact bilaterally Neck Neck: normal visual inspection, trachea midline, No lymphadenopathy, No midline deformity and No JVD Lymphatic: No lymphedema Chest Chest: normal inspection of the chest Resp Effort & Inspection: able to speak in complete sentences, no respiratory distress and no use of accessory muscles Auscultation: clear to auscultation bilaterally, no rales, no rhonchi and no wheezes Other: Patient displays deep rapid breathing, consistent with Kussmaul respirations. Cardio Rate: regular rate Rhythm: regular rhythm Heart Sounds: no click, no gallops, no murmurs and no rubs Pulses: normal peripheral pulses GI Inspection: non-distended Palpation: soft, no hepatosplenomegaly, No guarding, No pulsatile mass and tender (Mild, diffuse) Back/Spine/Pelvis Back: No CVA tenderness Cervical Spine: cervical ROM normal and No pain with cervical ROM Thoracic/Lumbar Spine: thoracic and lumbar spine normal to inspection Skin General: no rashes or lesions noted, No jaundice and No petechiae Neuro General: alert, oriented x3, gait normal and no focal motor deficits Speech: speech normal Extrem General: full ROM, no clubbing, cyanosis or edema, no pedal edema and no calf tenderness Psych Appearance: well kempt Mental Status: mental status grossly normal Attitude: cooperative Thought Content: normal and suicidality Judgment: judgment good Procedures Central Line Placement Right SC: Patient Placed on Monitor/Pulse Ox: Yes MD Prep: mask, gown and gloves Central Line Prep: Chlorhexidine scrub and sterile drapes applied Local Anesthetic: lidocaine 2% Amount of anesthesia used (mL): 5 Ultrasound Used for Placement: No Central Line Lumen Inserted: triple Post Procedure: sutured in place, good blood return, all ports aspirated, flushed, capped and sterile dressing applied Post Procedure X-Ray: tip of catheter in good position and no pneumothorax seen Patient Tolerated Procedure: Well Course Course Course Narrative: The patient was immediately started on IV fluids. Her Accu- Chek was quite high and I suspected, based on the patient's appearance and history that she was suffering from diabetic ketoacidosis. Patient was found to have not only a significantly elevated blood sugar at 537, but she was positive for serum ketones and was found to be severely acidotic with a blood pH of 7.14 and CO2 less than 5. Patient's anion gap was 45. Her white blood cell count was found to be 25, though no specific source of infection was found for the patient. Additionally, she was afebrile in the emergency department. Her lactic acid level was initially very high at 6.8, but I did suspect that much of this was due to the patient's lack of p.o. intake and vomiting, as well as her generally acidotic state. The patient had a very small peripheral IV, and it was difficult to get fluids in quickly, additionally, the patient needed an insulin drip, though she had been given a bolus of regular insulin which had brought her sugar down quite a bit. As such, I placed a right subclavian cent ral line, and the patient was able to get much more aggressive fluid management. We did start an insulin drip, as well. The patient received 3 L of normal saline in the emergency department and her repeat blood sugar after both a bolus and initiation of drip was found to be less than 200, at this point, I did continue the insulin drip, but switch patient to D5 half-normal saline for her fluids. I spoke with Dr. iniguez, who agreed to admit the patient to her service. The patient's repeat lactic acid level was normal after fluids and initiation of insulin. Orders Ordered: Discontinued Medications Acetaminophen (Tylenol) 650 mg PO Q4HR PRN PRN Reason: Fever/Mild Pain (1-3) Last Admin: 06/01/19 16:21 Dose: 650 mg Documented by: BRYAN Gloveruterol (Ventolin Hfa) 1 puff INH RTQ4HR PRN PRN Reason: Shortness Of Breath Chlordiazepoxide HCl (Librium) 10 mg PO TID [facility] Last Admin: 06/02/19 10:47 Dose: Not Given Documented by: Admin: 06/01/19 20:48 Dose: Not Given Documented by: BRYAN Clonazepam (Klonopin) 0.5 mg PO BID [facility] Last Admin: 06/02/19 10:39 Dose: Not Given Documented by: Admin: 06/02/19 00:22 Dose: 0.5 mg Documented by: LAURA Dextrose (D50w) 25 gm IV PRN PRN PRN Reason: Hypoglycemia Heparin Sodium (Porcine) (Heparin Flush (Cl/Picc/Mid)) 50 unit IV PRN PRN PRN Reason: Flush Hydroxychloroquine Sulfate (Plaquenil) 200 mg PO DAILYCC [facility] Last Admin: 06/02/19 09:44 Dose: 200 mg Documented by: ELIZABETH Sodium Chloride (Normal Saline 0.9%) 1,000 mls @ 1,000 mls/hr IV BOLUS ONE Stop: 06/01/19 11:25 Last Infusion: 06/01/19 12:52 Dose: 0 mls/hr Documented by: Admin: 06/01/19 10:40 Dose: 1,000 mls/hr Documented by: FARZANA Sodium Chloride (Normal Saline 0.9%) 1,000 mls @ 1,000 mls/hr IV BOLUS ONE Stop: 06/01/19 12:47 Last Infusion: 06/01/19 13:01 Dose: 0 mls/hr Documented by: Admin: 06/01/19 12:00 Dose: 1,000 mls/hr Documented by: FARZANA INSULIN DRIP PREMIX (Myxredlin Drip Premix) 100 unit in 100 mls @ 6 mls/hr IV TITRATE [facility]; Protocol Last Titration: 06/02/19 12:00 Dose: 0 mls/hr Documented by: Titration: 06/02/19 09:00 Dose: 0.8 mls/hr Documented by: Titration: 06/02/19 08:00 Dose: 2 mls/hr Documented by: Titration: 06/02/19 07:00 Dose: 0 mls/hr Documented by: Titration: 06/02/19 02:05 Dose: 2 mls/hr Documented by: Titration: 06/02/19 00:10 Dose: 0.8 mls/hr Documented by: Titration: 06/01/19 22:59 Dose: 2 mls/hr Documented by: Titration: 06/01/19 22:11 Dose: 3.2 mls/hr Documented by: Titration: 06/01/19 21:00 Dose: 0.8 mls/hr Documented by: Titration: 06/01/19 20:00 Dose: 0 mls/hr Documented by: Titration: 06/01/19 19:17 Dose: 0.8 mls/hr Documented by: Titration: 06/01/19 19:00 Dose: 0.8 mls/hr Documented by: Titration: 06/01/19 18:00 Dose: 3.2 mls/hr Documented by: Titration: 06/01/19 15:00 Dose: 4 mls/hr Documented by: Titration: 06/01/19 14:00 Dose: 4 mls/hr Documented by: Titration: 06/01/19 13:34 Dose: 6 mls/hr Documented by: Admin: 06/01/19 12:04 Dose: 6 mls/hr Documented by: FARZNAA Sodium Chloride (Normal Saline 0.9%) 1,000 mls @ 1,000 mls/hr IV BOLUS ONE Stop: 06/01/19 13:52 Last Infusion: 06/01/19 13:19 Dose: 0 mls/hr Documented by: Admin: 06/01/19 13:00 Dose: 1,000 mls/hr Documented by: FARZANA Sodium Chloride (Normal Saline 0.9%) 1,000 mls @ 1,000 mls/hr IV BOLUS ONE Stop: 06/01/19 14:07 Last Admin: 06/01/19 13:21 Dose: Not Given Documented by: FARZANA Dextrose/Sodium Chloride (Dextrose 5%-0.45% Ns) 1,000 mls @ 150 mls/hr IV CONT TARIK Last Infusion: 06/02/19 12:00 Dose: 0 mls/hr Documented by: Infusion: 06/02/19 08:00 Dose: 60 mls/hr Documented by: Infusion: 06/02/19 07:00 Dose: 0 mls/hr Documented by: Infusion: 06/02/19 02:05 Dose: 60 mls/hr Documented by: Infusion: 06/02/19 00:05 Dose: 0 mls/hr Documented by: Admin: 06/01/19 22:00 Dose: 60 mls/hr Documented by: Infusion: 06/01/19 19:28 Dose: 0 mls/hr Documented by: Infusion: 06/01/19 16:00 Dose: 60 mls/hr Documented by: Infusion: 06/01/19 15:00 Dose: 150 mls/hr Documented by: Infusion: 06/01/19 13:34 Dose: 500 mls/hr Documented by: Admin: 06/01/19 13:25 Dose: 500 mls/hr Documented by: FARZANA Potassium Chloride 40 meq/ (Sodium Chloride) 520 mls @ 130 mls/hr IV NOW ONE Stop: 06/01/19 14:46 Last Infusion: 06/01/19 23:52 Dose: 0 mls/hr Documented by: LAURA Cosigned by: YARIEL Admin: 06/01/19 15:05 Dose: 130 mls/hr Documented by: ELIZABETH Cosigned by: TBLANTO Dextrose (D10w) 1,000 mls @ 40 mls/hr IV CONT TARIK Last Infusion: 06/02/19 08:00 Dose: 0 mls/hr Documented by: Infusion: 06/02/19 07:00 Dose: 80 mls/hr Documented by: Infusion: 06/02/19 02:05 Dose: 0 mls/hr Documented by: Infusion: 06/02/19 00:10 Dose: 40 mls/hr Documented by: Infusion: 06/01/19 22:11 Dose: 0 mls/hr Documented by: Admin: 06/01/19 19:32 Dose: 40 mls/hr Documented by: BRYAN Potassium Chloride 40 meq/ (Sodium Chloride) 520 mls @ 130 mls/hr IV NOW ONE Stop: 06/02/19 01:05 Last Infusion: 06/02/19 04:00 Dose: 0 mls/hr Documented by: LAURA Cosigned by: LEA Admin: 06/01/19 22:52 Dose: 130 mls/hr Documented by: BRYAN Cosigned by: YARIEL Potassium Chloride 40 meq/ (Sodium Chloride) 520 mls @ 130 mls/hr IV NOW ONE Stop: 06/02/19 08:59 Last Infusion: 06/02/19 09:54 Dose: 0 mls/hr Documented by: ELIZABETH Cosigned by: MATIAS Admin: 06/02/19 05:25 Dose: 130 mls/hr Documented by: LAURA Cosigned by: LEA Insulin Aspart (Novolog Flexpen) 6 unit SUBCUT NOW ONE Stop: 06/02/19 12:57 Last Admin: 06/02/19 13:07 Dose: 6 unit Documented by: ELIZABETH Cosigned by: MATIAS Insulin Glargine (Lantus Solostar (Pen)) 10 unit SUBCUT BEDTIME TARIK Insulin Glargine (Lantus Solostar (Pen)) 10 unit SUBCUT NOW ONE Stop: 06/02/19 10:38 Last Admin: 06/02/19 10:43 Dose: 10 unit Documented by: ELIZABETH Cosigned by: MATIAS Insulin Human Regular (Humulin R) 8 unit IV NOW ONE Stop: 06/01/19 10:27 Last Admin: 06/01/19 10:39 Dose: 8 unit Documented by: FARZANA Cosigned by: ASIF Lisinopril (Zestril) 10 mg PO DAILY TARIK Last Admin: 06/02/19 10:39 Dose: Not Given Documented by: Admin: 06/01/19 16:20 Dose: 10 mg Documented by: BRYAN Lorazepam (Ativan) 0.5 mg IV NOW ONE Stop: 06/01/19 11:12 Last Admin: 06/01/19 11:17 Dose: 0.5 mg Documented by: FARZANA Lorazepam (Ativan) 1 mg IV Q6HR PRN PRN Reason: Delerium Methotrexate (Methotrexate) 15 mg PO MOTU [facility] Methotrexate (Methotrexate) 15 mg PO MoTu@0900 [facility] Last Admin: 06/02/19 09:44 Dose: 15 mg Documented by: Admin: 06/01/19 21:23 Dose: Not Given Documented by: BRYAN Metoclopramide HCl (Reglan) 10 mg IV Q6HR PRN PRN Reason: Nausea And Vomiting Stored In Pharmacy 0 each PO PRN PRN PRN Reason: . Ondansetron HCl (Zofran) 4 mg IV NOW ONE Stop: 06/01/19 10:27 Last Admin: 06/01/19 10:40 Dose: 4 mg Documented by: FARZANA Ondansetron HCl (Zofran) 4 mg IV Q4HR PRN PRN Reason: Nausea And Vomiting Sodium Chloride (Normal Saline 0.9% Flush) 10 ml IV PRN PRN PRN Reason: Flush Sodium Chloride (Normal Saline 0.9% Flush) 10 ml IV BID [facility] Last Admin: 06/02/19 10:43 Dose: 10 ml Documented by: ELIZABETH Sulfasalazine (Azulfidine) 1,000 mg PO BID [facility] Last Admin: 06/02/19 09:43 Dose: 1,000 mg Documented by: Admin: 06/01/19 22:13 Dose: Not Given Documented by: Admin: 06/01/19 21:23 Dose: Not Given Documented by: BRYAN MDM - Nausea/Vomiting/Diarrhea Medical Records Attestation: I reviewed the patient's medical records. Lab Data Attestation: I reviewed the patient's lab results. Result diagrams: 06/02/19 04:05 06/02/19 04:05 Labs: Lab Results 06/01/19 06/01/19 06/01/19 Range/Units 10:24 10:24 10:26 WBC (4.5-11.0) X10^3/uL RBC (4.0-5.2) X10^6/uL Hgb (12.0-16.0) g/dL Hct (36-46) % MCV (80-100) fL MCH (26-34) PG MCHC (30-36) % RDW (11.6-14.8) % Plt Count (150-400) X10^3/uL Neut % (Auto) (50-75) % Lymph % (Auto) (25-40) % Dundy % (Auto) (3-14) % Eos % (Auto) (2-4) % Baso % (Auto) (0-2) % Neut # (Auto) (3967-7331) /uL Lymph # (Auto) (9451-4177) /uL Dundy # (Auto) (0-900) /uL Eos # (Auto) (0-450) /uL Baso # (Auto) (0-100) /uL ABG pH 7.14 L* (7.35-7.45) ABG pCO2 11.0 L* (35-45) mmHg ABG pO2 145 H (80-100) mmHg ABG HCO3 4 L (22-26) mmol/L ABG Total CO2 < 5 L (21-31) mmol/L ABG O2 Saturation 99 (95-100) % ABG Base Excess -25.0 L (-2-2) mmol/L FiO2 28 Sodium (137-145) mmol/L Potassium (3.4-5.1) mmol/L Chloride (98-107) mmol/L Carbon Dioxide (22-32) mmol/L BUN (7-17) mg/dL Creatinine (0.52-1.04) mg/dL Estimated GFR (>60) mL/min BUN/Creatinine Ratio (6-22) Glucose (70-100) mg/dL Hemoglobin A1c > 14.0 H (4.0-6.0) % Lactate (0.7-2.1) mmol/L Calcium (8.4-10.2) mg/dL Total Bilirubin (0.2-1.3) mg/dL AST (14-36) IU/L ALT (<35) IU/L Alkaline Phosphatase (38-126) U/L Total Protein (6.3-8.2) g/dL Albumin (3.5-5.0) g/dL Globulin (1.7-4.1) g/dL Albumin/Globulin Ratio (1.0-2.8) Serum , Qual Negative (Negative) Ketones (<0.27) mmol/L 06/01/19 06/01/19 06/01/19 Range/Units 10:29 10:29 10:29 WBC 25.0 H (4.5-11.0) X10^3/uL RBC 4.84 (4.0-5.2) X10^6/uL Hgb 14.7 (12.0-16.0) g/dL Hct 45.5 (36-46) % MCV 93.9 (80-100) fL MCH 30.3 (26-34) PG MCHC 32.3 (30-36) % RDW 18.2 H (11.6-14.8) % Plt Count 588 H (150-400) X10^3/uL Neut % (Auto) 90.9 H (50-75) % Lymph % (Auto) 4.6 L (25-40) % Dundy % (Auto) 3.9 (3-14) % Eos % (Auto) 0.0 L (2-4) % Baso % (Auto) 0.6 (0-2) % Neut # (Auto) 93406 H (0011-3584) /uL Lymph # (Auto) 1100 (1471-1823) /uL Dundy # (Auto) 1000 H (0-900) /uL Eos # (Auto) 0 (0-450) /uL Baso # (Auto) 200 H (0-100) /uL ABG pH (7.35-7.45) ABG pCO2 (35-45) mmHg ABG pO2 (80-100) mmHg ABG HCO3 (22-26) mmol/L ABG Total CO2 (21-31) mmol/L ABG O2 Saturation (95-100) % ABG Base Excess (-2-2) mmol/L FiO2 Sodium 140 (137-145) mmol/L Potassium 4.0 (3.4-5.1) mmol/L Chloride 90 L (98-107) mmol/L Carbon Dioxide < 5 L* (22-32) mmol/L BUN 10 (7-17) mg/dL Creatinine 1.30 H (0.52-1.04) mg/dL Estimated GFR 48.4 L (>60) mL/min BUN/Creatinine Ratio 7.7 (6-22) Glucose 537 H* (70-100) mg/dL Hemoglobin A1c (4.0-6.0) % Lactate 6.8 H* (0.7-2.1) mmol/L Calcium 8.9 (8.4-10.2) mg/dL Total Bilirubin 0.7 (0.2-1.3) mg/dL AST 109 H (14-36) IU/L ALT 13 (<35) IU/L Alkaline Phosphatase 164 H (38-126) U/L Total Protein 9.5 H (6.3-8.2) g/dL Albumin 5.5 H (3.5-5.0) g/dL Globulin 4.0 (1.7-4.1) g/dL Albumin/Globulin Ratio 1.4 (1.0-2.8) Serum , Qual (Negative) Ketones 19.33 H (<0.27) mmol/L Point of Care Testing Glucose POC 237 Imaging Data Chest x-ray: Radiologist's Impression: PROCEDURE: XR CHEST 1V INDICATIONS: central line placement TECHNIQUE: One view of the chest was acquired. COMPARISON: [facility], , XR CHEST 1V, 06/26/2018, 18:40. FINDINGS: Surgical changes and devices: Right-sided central line positioning normal. Side port. Lungs and pleura: Lungs are clear. No pleural effusions or pneumothorax. Mediastinum: Mediastinal contours appear normal. Heart size is normal. Bones and chest wall: No suspicious bony lesions. Overlying soft tissues appear unremarkable. IMPRESSION: Central line placed from right subclavian approach extends in normal position in the distal SVC, without pneumothorax. Dictated by: Brad Fleming M.D. on 06/01/2019 at 12:24 Approved by: Brad Fleming M.D. on 06/01/2019 at 12:25 ECG Data Attestation: I personally reviewed and interpreted this ECG as follows: (See below) Interpretation: Twelve lead EKG performed June 01, 2019 at 10:15 a.m., as follows: Regular ventricular rhythm with a rate of 126 beats per minute ME interval 108 millisecond QRS duration 80 millisecond QTC interval [address] T wave changes Interpretation: Sinus tachycardia with short ME interval; marked left axis deviation; no signs of acute ischemia as interpreted by ED MD. Critical Care Time Critical Care Time Critical Care Time: Yes Total Critical Care Time: 60 Attestation: Critical care time was necessary, due to high probability of imminent decline and , due to diabetic ketoacidosis. Critical care time is exclusive of separately billable procedures. Critical care time included: Interviewing and examining the patient, ordering and reviewing laboratory studies, ordering and reviewing imaging studies, evaluating cardiac output, evaluating oxygen saturation, discussion with consultants, discussion with family, re-examining the patient, and documentation. Discharge Plan Departure Patient Disposition: Admitted As Inpatient Clinical Impression: DKA (diabetic ketoacidoses) Qualifiers: Diabetes mellitus type: type 1 Diabetes mellitus complication detail: without coma Qualified Code(s): E10.10 - Type 1 diabetes mellitus with ketoacidosis without coma Discharge Date/Time: 06/01/19 13:43 Admit Date/Time: 06/01/19 12:40 Admit Provider: Soila Iniguez
[2019-06-01 10:38] LABS: Add Manual Diff / Slide Review NO; Basophils Absolute Auto 200 /uL (0-100); Basophils Percent Auto 0.6 % (0-2); Eosinophils Absolute Auto 0 /uL (0-450); Hematocrit 45.5 % (36-46); Hemoglobin 14.7 g/dL (12.0-16.0); Lymphocytes Absolute Auto 1100 /uL (1100-4500); Lymphocytes Percent Auto 4.6 % (25-40); Mean Corpuscular HGB Conc 32.3 % (30-36); Mean Corpuscular Hemoglobin 30.3 PG (26-34); Mean Corpuscular Volume 93.9 fL (80-100); Monocytes Absolute Auto 1000 /uL (0-900); Monocytes Percent Auto 3.9 % (3-14); Neutrophils Absolute Auto 22700 /uL (1500-7000); Neutrophils Percent Auto 90.9 % (50-75); Platelet Count 588 X10^3/uL (150-400); Red Blood Cell Count 4.84 X10^6/uL (4.0-5.2); Red Cell Distribution Width 18.2 % (11.6-14.8)
[2019-06-01] MEDS: INSULIN REGULAR 100 UNIT/ML 3 ML VIAL 8 UNIT IV (10:39)
[2019-06-01] MEDS: SODIUM CHLORIDE 0.9% 1,000 ML 1000 ML IV ×3 (10:40→13:00)
[2019-06-01] MEDS: ONDANSETRON 4 MG/2 ML INJ IV (10:40)
[2019-06-01 10:44] LABS: HCO3 ABG 4 mmol/L (22-26); PO2 ABG 145 mmHg (80-100); TCO2 ABG < 5 mmol/L (21-31); pH ABG 7.14 (7.35-7.45)
[2019-06-01 10:45] LABS: Fractionated Inspired Oxygen 28; Oxygen Saturation ABG 99 % (95-100)
[2019-06-01 10:47] LABS: Alanine Aminotransferase 13 IU/L (<35); Albumin 5.5 g/dL (3.5-5.0); Albumin Globulin Ratio 1.4 (1.0-2.8); Alkaline Phosphatase 164 U/L (38-126); Aspartate Aminotransferase 109 IU/L (14-36); BUN Creatinine Ratio 7.7 (6-22); Bilirubin Total 0.7 mg/dL (0.2-1.3); Blood Urea Nitrogen 10 mg/dL (7-17); Calcium 8.9 mg/dL (8.4-10.2); Chloride 90 mmol/L (98-107); Estimated Glomerular Filt Rate 48.4 mL/min (>60); Sodium 140 mmol/L (137-145); Total Protein 9.5 g/dL (6.3-8.2)
[2019-06-01 10:50] LABS: Carbon Dioxide < 5 mmol/L (22-32)
[2019-06-01 10:51] LABS: Glucose 537 mg/dL (70-100)
[2019-06-01 10:52] LABS: Lactate (Lactic Acid) 6.8 mmol/L (0.7-2.1)
[2019-06-01 11:10] LABS: HEMOLYSIS 34 (0-50); Ketones (Beta-Hydroxybutyrate) 19.33 mmol/L (<0.27)
[2019-06-01] MEDS: LORazepam 2 MG/ML INJ 0.5 MG IV (11:17)
--- NOTE | 2019-06-01 11:26 | PC.NURSE ---
assisting with CVP placement
--- NOTE | 2019-06-01 11:39 | DI.RAD.S_ITS ---
PROCEDURE: XR CHEST 1V INDICATIONS: central line placement TECHNIQUE: One view of the chest was acquired. COMPARISON: [facility], CR, XR CHEST 1V, 06/26/2018, 18:40. FINDINGS: Surgical changes and devices: Right-sided central line positioning normal. Side port. Lungs and pleura: Lungs are clear. No pleural effusions or pneumothorax. Mediastinum: Mediastinal contours appear normal. Heart size is normal. Bones and chest wall: No suspicious bony lesions. Overlying soft tissues appear unremarkable. IMPRESSION: Central line placed from right subclavian approach extends in normal position in the distal SVC, without pneumothorax. Dictated by: Brad Fleming M.D. on 06/01/2019 at 12:24 Approved by: Brad Fleming M.D. on 06/01/2019 at 12:25
--- NOTE | 2019-06-01 11:44 | PC.NURSE ---
Dr. Braxton kim blood from her central line during insertion for her blood cultures.
[2019-06-01] MEDS: INSULIN DRIP PREMIX 100 UNIT/100 ML PLAST..BAG 6 UNIT IV (12:04)
[2019-06-01 12:33] LABS: Reflexed Lactate in 2 Hours Y
--- NOTE | 2019-06-01 13:10 | PC.NURSE ---
will keep insulin gtt at 6 units per hour at this time for blood sugar [address] Braxton. will switch fluids.
[2019-06-01 13:25] LABS: Lactate 2HR (Lactic Acid Rflx) 1.6 mmol/L (0.7-2.1)
[2019-06-01] MEDS: DEXTROSE 5%-0.45% NS 1,000 ML 500 ML IV (13:25)
[2019-06-01 14:15] LABS: Bacteria Urine None Seen
[2019-06-01 14:16] LABS: Appearance Urine UA CLEAR; Bilirubin Urine UA NEGATIVE (NEGATIVE); Color Urine UA YELLOW; Glucose Urine UA 1+ g/dL (Negative); Ketones Urine UA 3+ (NEGATIVE); Leukocyte Esterase Urine UA NEGATIVE (NEGATIVE); Nitrite Urine UA NEGATIVE (Negative); Occult Blood Urine UA 1+ (Negative); Protein Urine UA 2+ (Negative); Urobilinogen Urine UA 0.2 E.U./dL (0.2)
[2019-06-01 14:18] LABS: pH Urine UA 5.5 (4.5-8.0)
[2019-06-01 14:21] LABS: RBC Urine 1-5/HPF (0-5/HPF); Squamous Epithelial Cell Urine 1-5 /HPF (0-5/HPF); WBC Urine 1-5/HPF (0-5/HPF)
[2019-06-01 14:22] LABS: Culture Indicated Urine Specimen Cultured
[2019-06-01 14:33] LABS: BUN Creatinine Ratio 13.8 (6-22); Blood Urea Nitrogen 11 mg/dL (7-17); Chloride 107 mmol/L (98-107); Estimated Glomerular Filt Rate > 60.0 mL/min (>60); Glucose 303 mg/dL (70-100); HEMOLYSIS < 15 (0-50); Potassium 3.1 mmol/L (3.4-5.1); Sodium 141 mmol/L (137-145)
[2019-06-01 14:34] LABS: Carbon Dioxide 9 mmol/L (22-32)
--- NOTE | 2019-06-01 14:43 | PM.HP.1 ---
History of Present Illness History of Present Illness Date Patient Seen: 06/01/19 Chief complaint: nausea/vomiting/sob x1 day Narrative: The patient is a 28-year-old female with a history of type 1 diabetes, diabetic polyneuropathy, history of diabetic ketoacidosis, rheumatoid arthritis, hypertension, alcohol dependence with history of alcohol withdrawal who presented to the emergency room in [facility]. Patient reports she has been binge drinking for the past week. She quit drinking on Saturday. She noted she was nauseated and vomiting. She is supposed to be taking glargine insulin twice daily. However the patient has not been taking her long-acting insulin but taking subcu insulin with meals 3 times daily. She states she discontinued her glargine as she became hypoglycemic. She also reports some weight loss. Patient was found to be hyperglycemic with a blood sugar of over 500, she was acidotic with a pH is 7.1. She was started on insulin drip after a central line was placed and admitted to the hospital for diabetic ketoacidosis. Patient reports a history of binge drinking, she states typically she drinks 2-3 days and then will discontinue. She is somewhat reluctant but agreeable to consider alcohol treatment as she has had multiple admissions for alcoholism, alcohol withdrawal, and diabetic ketoacidosis related to medical noncompliance. Patient does reports severe anxiety. She takes chronic benzodiazepines to manage this. Patient History Medical History Alcoholism (Acute) Diabetes (Acute) Diabetic neuropathy (Acute) DKA (diabetic ketoacidoses) (Acute) Pancreatitis (Acute) Rheumatoid arthritis (Acute) Family & Social History Family History (Updated 06/01/19 @ 15:47 by Soila Iniguez MD) Father Alcoholism /alcohol abuse Mother Hypertension Stroke due to embolism of cerebellar artery Social History: household members significant other,children Prior Living Arrangements House Safety & Behavioral: Feels Safe in Current Yes Environment Been Physically Hurt or No Threatened By a Person Suicidal Ideation Description None Suicide Plan Description No Plan Tobacco & Substance use: Smoking Status Former smoker alcohol intake current alcohol intake frequency 3 or more drinks per day Substance Use Type does not use Meds Home Medications and Allergies Home Medications Medication Instructions Recorded Confirmed Type Luisa 1 ea INTRAUTERINE DIRECTED 02/13/18 06/01/19 History insulin glargine 20 units SUBCUT BID 02/13/18 06/01/19 History [id number] fum-folic acid-dss 1 tab PO DAILY 06/01/19 06/01/19 History [Se- 19 (with docusate)] albuterol sulfate [ProAir HFA] 1 - 2 puff INHALATION Q4-6H PRN 06/01/19 06/01/19 History clonazepam 0.5 mg PO BID 06/01/19 06/01/19 History hydroxychloroquine 200 mg PO DAILY 06/01/19 06/01/19 History insulin lispro [Humalog KwikPen 8 unit SUBCUT TIDWM 06/01/19 06/01/19 History Insulin] lisinopril 10 mg PO DAILY 06/01/19 06/01/19 History methotrexate sodium 15 mg PO MOTU 06/01/19 06/01/19 History piroxicam 20 mg PO DAILY 06/01/19 06/01/19 History sulfasalazine 1,000 mg PO BID 06/01/19 06/01/19 History Allergies Allergy/AdvReac Type Severity Reaction Status Date / Time No Known Drug Allergies Allergy Verified 06/26/18 17:38 Review of Systems Review of Systems Narrative: Patient reports bilateral hand pain due to arthritis, she has had some nausea and vomiting. She reports feeling achy all over. She has a mild headache. She describes some shortness of breath. Patient also reports abdominal pain, and has had some weight loss over the past week. Exam Vital Signs (past 8 hours): - 06/01/19 10:12 06/01/19 10:30 06/01/19 11:18 Temperature 98.4 F Pulse Rate 127 H 125 H 125 H Respiratory Rate 28 H 30 H 20 Blood Pressure 116/82 Blood Pressure [Left Arm] 136/99 H 139/104 H Pulse Oximetry 100 100 100 06/01/19 11:25 06/01/19 11:45 06/01/19 13:00 Temperature Pulse Rate 122 H 118 H 110 H Respiratory Rate 21 21 18 Blood Pressure Blood Pressure [Left Arm] 134/96 H 134/96 H 149/113 H Pulse Oximetry 100 100 100 06/01/19 13:17 06/01/19 13:28 06/01/19 13:35 Temperature Pulse Rate 109 H 111 H 108 H Respiratory Rate 17 18 17 Blood Pressure 136/105 H Blood Pressure [Left Arm] 142/111 H 137/105 H Pulse Oximetry 100 99 100 06/01/19 14:26 Temperature Pulse Rate 104 H Respiratory Rate 22 Blood Pressure 162/108 H Blood Pressure [Left Arm] Pulse Oximetry 100 Oxygen Delivery Method Room Air Oxygen Flow Rate 2 Narrative Exam Narrative: Ill-appearing female lying in bed HEENT: Normocephalic atraumatic, sclerae anicteric, extraocular muscles are intact, oropharynx is clear, neck is supple Lungs: Clear to auscultation Cardiac exam: Tachycardic regular rate and rhythm normal S1-S2 Abdomen: Scaphoid soft nontender, nondistended, no appreciable hepatosplenomegaly Ext: No edema Neurological exam, nonfocal Objective Labs Result Diagrams: 06/01/19 10:29 06/01/19 14:00 Labs: Laboratory Results - last 24 hr 06/01/19 06/01/19 06/01/19 10:26 10:29 10:29 WBC 25.0 H RBC 4.84 Hgb 14.7 Hct 45.5 MCV 93.9 MCH 30.3 MCHC 32.3 RDW 18.2 H Plt Count 588 H Neut % (Auto) 90.9 H Lymph % (Auto) 4.6 L [place] % (Auto) 3.9 Eos % (Auto) 0.0 L Baso % (Auto) 0.6 Neut # (Auto) 50200 H Lymph # (Auto) 1100 [place] # (Auto) 1000 H Eos # (Auto) 0 Baso # (Auto) 200 H ABG pH 7.14 L* ABG pCO2 11.0 L* ABG pO2 145 H ABG HCO3 4 L ABG Total CO2 < 5 L ABG O2 Saturation 99 ABG Base Excess -25.0 L FiO2 28 Sodium 140 Potassium 4.0 Chloride 90 L Carbon Dioxide < 5 L* BUN 10 Creatinine 1.30 H Estimated GFR 48.4 L BUN/Creatinine Ratio 7.7 Glucose 537 H* Lactate Calcium 8.9 Total Bilirubin 0.7 AST 109 H ALT 13 Alkaline Phosphatase 164 H Total Protein 9.5 H Albumin 5.5 H Globulin 4.0 Albumin/Globulin Ratio 1.4 Urine Color Urine Appearance Urine pH Ur Specific [place] Urine Protein Urine Glucose (UA) Urine Ketones Urine Occult Blood Urine Nitrate Urine Bilirubin Urine Urobilinogen Ur Leukocyte Esterase Urine RBC Urine WBC Ur Squamous Epith Cells Urine Bacteria Urine Yeast Ur Culture Indicated? Ketones 19.33 H 06/01/19 06/01/19 06/01/19 10:29 13:05 13:55 WBC RBC Hgb Hct MCV MCH MCHC RDW Plt Count Neut % (Auto) Lymph % (Auto) [place] % (Auto) Eos % (Auto) Baso % (Auto) Neut # (Auto) Lymph # (Auto) [place] # (Auto) Eos # (Auto) Baso # (Auto) ABG pH ABG pCO2 ABG pO2 ABG HCO3 ABG Total CO2 ABG O2 Saturation ABG Base Excess FiO2 Sodium Potassium Chloride Carbon Dioxide BUN Creatinine Estimated GFR BUN/Creatinine Ratio Glucose Lactate 6.8 H* 1.6 Calcium Total Bilirubin AST ALT Alkaline Phosphatase Total Protein Albumin Globulin Albumin/Globulin Ratio Urine Color Yellow Urine Appearance Clear Urine pH 5.5 Ur Specific [place] 1.020 Urine Protein 2+ H Urine Glucose (UA) 1+ H Urine Ketones 3+ H Urine Occult Blood 1+ H Urine Nitrate Negative Urine Bilirubin Negative Urine Urobilinogen 0.2 Ur Leukocyte Esterase Negative Urine RBC 1-5/hpf Urine WBC 1-5/hpf Ur Squamous Epith Cells 1-5 /hpf Urine Bacteria None seen Urine Yeast 5-10/hpf H Ur Culture Indicated? Specimen cultured Ketones 06/01/19 14:00 WBC RBC Hgb Hct MCV MCH MCHC RDW Plt Count Neut % (Auto) Lymph % (Auto) [place] % (Auto) Eos % (Auto) Baso % (Auto) Neut # (Auto) Lymph # (Auto) [place] # (Auto) Eos # (Auto) Baso # (Auto) ABG pH ABG pCO2 ABG pO2 ABG HCO3 ABG Total CO2 ABG O2 Saturation ABG Base Excess FiO2 Sodium 141 Potassium 3.1 L Chloride 107 Carbon Dioxide 9 L* BUN 11 Creatinine 0.80 Estimated GFR > 60.0 BUN/Creatinine Ratio 13.8 Glucose 303 H D Lactate Calcium 7.0 L Total Bilirubin AST ALT Alkaline Phosphatase Total Protein Albumin Globulin Albumin/Globulin Ratio Urine Color Urine Appearance Urine pH Ur Specific [place] Urine Protein Urine Glucose (UA) Urine Ketones Urine Occult Blood Urine Nitrate Urine Bilirubin Urine Urobilinogen Ur Leukocyte Esterase Urine RBC Urine WBC Ur Squamous Epith Cells Urine Bacteria Urine Yeast Ur Culture Indicated? Ketones Assessment & Plan Assessment & Plan narrative: Impression 1. 28-year-old female with type 1 diabetes admitted to the hospital with diabetic ketoacidosis -patient presented with a pH 7.14, bicarb of 9, blood sugar of over 500 -patient admits to not taking her usual long-acting insulin and has not done so for some time -she reports binge drinking and not taking her short-acting insulin yesterday. -will continue with IV hydration, IV insulin, and antiemetics -will resume subcu insulin once her acidosis has resolved -need to resume b.i.d. long-acting insulin, in addition to short-acting insulin with meals once her diabetic ketoacidosis has resolved 2. Alcohol dependence, with a history of alcohol withdrawal syndrome -patient admits to binge drinking, weak -patient will be placed on a CILA protocol -will recommend social work consultation for outpatient alcohol treatment given her recurrent episodes of DKA associated with binge drinking 3. Hypertension -present on admission -continue lisinopril - 4. Rheumatoid arthritis, chronic -continue methotrexate, sulfasalazine, hydrochloric when which she takes at home 5. Generalized anxiety disorder -will continue her clonazepam -recommend outpatient psychiatric evaluation Quality VTE Deep Vein Thrombosis/Pulmonary Embolism Present on Admission: No
[2019-06-01] MEDS: POTASSIUM CHLORIDE 40 MEQ in SODIUM CHLORIDE 0.9% 500 ML 130 ML IV ×2 (15:05→22:52)
[2019-06-01 15:28] LABS: Pregnancy Test Serum,Qual Negative (Negative)
[2019-06-01 15:29] LABS: Hemoglobin A1C% w Est Avg Glu > 14.0 % (4.0-6.0)
[2019-06-01] MEDS: LISINOPRIL 10 MG TABLET PO (16:20)
[2019-06-01] MEDS: ACETAMINOPHEN 325 MG TABLET 650 MG PO (16:21)
[2019-06-01 18:32] LABS: Add Manual Diff / Slide Review NO; Basophils Absolute Auto 100 /uL (0-100); Basophils Percent Auto 0.4 % (0-2); Eosinophils Absolute Auto 0 /uL (0-450); Hematocrit 31.3 % (36-46); Hemoglobin 10.7 g/dL (12.0-16.0); Lymphocytes Absolute Auto 1500 /uL (1100-4500); Lymphocytes Percent Auto 9.2 % (25-40); Mean Corpuscular Hemoglobin 30.1 PG (26-34); Mean Corpuscular Volume 88.6 fL (80-100); Monocytes Absolute Auto 1400 /uL (0-900); Monocytes Percent Auto 8.9 % (3-14); Neutrophils Absolute Auto 13100 /uL (1500-7000); Neutrophils Percent Auto 81.5 % (50-75); Platelet Count 404 X10^3/uL (150-400); Red Blood Cell Count 3.54 X10^6/uL (4.0-5.2); Red Cell Distribution Width 18.1 % (11.6-14.8); White Blood Cell Count 16.1 X10^3/uL (4.5-11.0)
[2019-06-01 18:43] LABS: Blood Urea Nitrogen 9 mg/dL (7-17); Calcium 6.9 mg/dL (8.4-10.2); Carbon Dioxide 17 mmol/L (22-32); Chloride 107 mmol/L (98-107); Estimated Glomerular Filt Rate > 60.0 mL/min (>60); Glucose 168 mg/dL (70-100); HEMOLYSIS < 15 (0-50); Lipase 172 U/L (23-300); Potassium 3.5 mmol/L (3.4-5.1); Sodium 136 mmol/L (137-145)
[2019-06-01] MEDS: DEXTROSE 10 % IN WATER 1,000 ML 40 ML IV (19:32)
--- NOTE | 2019-06-01 20:40 | PC.NURSE ---
Evening Shift Note: Pt with uneventful shift. Pt has been mostly sleeping, initially difficult to arouse and somnolent, pt with difficulty maintaining wakefulness. Pt now more alert, taking sugar-free clear liquids, denies nausea. Insulin gtts per DKA protocol. Insulin gtts on hold at 1999, will recheck in 1 hour. Pt otherwise with no complaints. Will continue to monitor, notify MD with changes.
[2019-06-01] MEDS: DEXTROSE 5%-0.45% NS 1,000 ML 60 ML IV (22:00)
[2019-06-01 23:42] LABS: Blood Urea Nitrogen 10 mg/dL (7-17); Calcium 7.6 mg/dL (8.4-10.2); Carbon Dioxide 18 mmol/L (22-32); Chloride 106 mmol/L (98-107); Estimated Glomerular Filt Rate > 60.0 mL/min (>60); Glucose 153 mg/dL (70-100); Sodium 134 mmol/L (137-145)
[2019-06-01 23:43] LABS: HEMOLYSIS 107 (0-50)
[2019-06-01 23:46] LABS: Potassium 4.5 mmol/L (3.4-5.1)
[2019-06-02] VITALS (12 sets, daily range): BP systolic 99–115; BP diastolic 40–84; PULSE 80–106; RESP 11–19; TEMP 36.5–36.8; O2SAT 97–100
[2019-06-02] MEDS: clonazePAM 0.5 MG TABLET PO (00:22)
[2019-06-02 04:15] LABS: Add Manual Diff / Slide Review NO; Basophils Absolute Auto 0 /uL (0-100); Basophils Percent Auto 0.4 % (0-2); Eosinophils Absolute Auto 100 /uL (0-450); Eosinophils Percent Auto 0.7 % (2-4); Hematocrit 32.3 % (36-46); Lymphocytes Absolute Auto 1600 /uL (1100-4500); Lymphocytes Percent Auto 17.6 % (25-40); Mean Corpuscular Hemoglobin 30.9 PG (26-34); Mean Corpuscular Volume 90.9 fL (80-100); Monocytes Absolute Auto 700 /uL (0-900); Monocytes Percent Auto 7.1 % (3-14); Neutrophils Absolute Auto 6800 /uL (1500-7000); Neutrophils Percent Auto 74.2 % (50-75); Platelet Count 389 X10^3/uL (150-400); Red Blood Cell Count 3.56 X10^6/uL (4.0-5.2); Red Cell Distribution Width 18.2 % (11.6-14.8); White Blood Cell Count 9.1 X10^3/uL (4.5-11.0)
[2019-06-02 04:22] LABS: Blood Urea Nitrogen 8 mg/dL (7-17); Calcium 7.9 mg/dL (8.4-10.2); Carbon Dioxide 20 mmol/L (22-32); Chloride 108 mmol/L (98-107); Estimated Glomerular Filt Rate > 60.0 mL/min (>60); Glucose 154 mg/dL (70-100); HEMOLYSIS < 15 (0-50); Potassium 3.4 mmol/L (3.4-5.1); Sodium 135 mmol/L (137-145)
[2019-06-02] MEDS: POTASSIUM CHLORIDE 40 MEQ in SODIUM CHLORIDE 0.9% 500 ML 130 ML IV (05:25)
--- NOTE | 2019-06-02 06:56 | PC.NURSE ---
Barrel Bander Note-Patient sleeping and drowsy most of shift, awake and oriented x3 early in shift when she had visitor. CBG 120-163, insulin gtt infusing at 2units/hr. D5 1/2NS at 60ml/hr mostly, see flow sheet. Also receiving 40meq K+ Riders.
[2019-06-02] MEDS: sulfaSALAzine 500 MG TABLET 1000 MG PO (09:43)
[2019-06-02] MEDS: HYDROXYCHLOROQUINE 200 MG TABLET PO (09:44)
--- NOTE | 2019-06-02 10:18 | PM.DS.1 ---
History of Present Illness History of Present Illness Chief complaint: nausea/vomiting/sob x1 day Narrative: The patient is a 28-year-old female with a history of type 1 diabetes, diabetic polyneuropathy, history of diabetic ketoacidosis, rheumatoid arthritis, hypertension, alcohol dependence with history of alcohol withdrawal who presented to the emergency room in [facility]. Patient reports she has been binge drinking for the past week. She quit drinking on Saturday. She noted she was nauseated and vomiting. She is supposed to be taking glargine insulin twice daily. However the patient has not been taking her long-acting insulin but taking subcu insulin with meals 3 times daily. She states she discontinued her glargine as she became hypoglycemic. She also reports some weight loss. Patient was found to be hyperglycemic with a blood sugar of over 500, she was acidotic with a pH is 7.1. She was started on insulin drip after a central line was placed and admitted to the hospital for diabetic ketoacidosis. Patient reports a history of binge drinking, she states typically she drinks 2-3 days and then will discontinue. She is somewhat reluctant but agreeable to consider alcohol treatment as she has had multiple admissions for alcoholism, alcohol withdrawal, and diabetic ketoacidosis related to medical noncompliance. Patient does reports severe anxiety. She takes chronic benzodiazepines to manage this. Discharge Providers Provider Date of admission: 06/01/19 12:40 Discharge Date: 06/02/19 Discharge provider: Soila Iniguez MD Summary Hospital Course Discharge Diagnosis: 1. diabetic ketoacidosis, present on admission now resolved 2. Type 1 diabetes, poorly controlled 3. Alcohol dependence, no evidence of withdrawal 4. Hypertension 5. Rheumatoid arthritis 6. Generalized anxiety disorder 7. Hypokalemia Hospital Course: Patient is a 28-year-old female with history of type 1 diabetes who has been binge drinking for some time. Patient reports drinking 4 week and not taking her long-acting insulin. She takes her pre meal insulin but has discontinued her long-acting insulin sometime ago. She was admitted to the hospital with diabetic ketoacidosis. Patient was placed on an insulin drip, given IV hydration, had improvement in her acidosis in addition to her hyperglycemia. She had no evidence of withdrawal. Patient is willing to consider alcohol treated and arrangements will be made for social work consultation prior to discharge. Patient was weaned off the insulin drip, given subcutaneous insulin, she will follow-up with her primary care physician at the [facility] by the end of this week. Patient was deemed appropriate for discharge and arrangements were made to discharge her home. Status at Discharge Cognitive/behavioral status at discharge: oriented Functional status at discharge: independent ambulation Overall status at discharge: patient is back to baseline Time Spent with Patient Time spent: Less than 30 minutes Exam Vital Signs (past 8 hours): - 06/02/19 03:00 06/02/19 04:00 06/02/19 05:00 Temperature 98.2 F Pulse Rate 95 H 90 90 Respiratory Rate 19 11 L 15 Blood Pressure 108/82 103/50 L 99/40 L Pulse Oximetry 99 97 99 06/02/19 06:00 06/02/19 07:00 06/02/19 08:00 Temperature 98.2 F Pulse Rate 87 87 84 Respiratory Rate 16 14 16 Blood Pressure 115/46 L 104/49 L 100/41 L Pulse Oximetry 100 100 100 06/02/19 09:00 06/02/19 10:00 Temperature 97.8 F Pulse Rate 91 H 87 Respiratory Rate 15 12 Blood Pressure 100/64 107/72 Pulse Oximetry 98 100 Oxygen Delivery Method Room Air Oxygen Flow Rate 0 Narrative Exam Narrative: Pleasant female resting comfortably in no obvious distress Lungs: Clear to auscultation Cardiac exam: Regular rate rhythm normal S1-S2 Abdomen: Soft mild tenderness, no hepatosplenomegaly, no rebound tender no board-like rigidity Extremities: No edema Objective Labs Result Diagrams: 06/02/19 04:05 06/02/19 04:05 Labs: Laboratory Results - last 24 hr 06/01/19 06/01/19 06/01/19 10:24 10:24 10:26 WBC RBC Hgb Hct MCV MCH MCHC RDW Plt Count Neut % (Auto) Lymph % (Auto) [place] % (Auto) Eos % (Auto) Baso % (Auto) Neut # (Auto) Lymph # (Auto) [place] # (Auto) Eos # (Auto) Baso # (Auto) ABG pH 7.14 L* ABG pCO2 11.0 L* ABG pO2 145 H ABG HCO3 4 L ABG Total CO2 < 5 L ABG O2 Saturation 99 ABG Base Excess -25.0 L FiO2 28 Sodium Potassium Chloride Carbon Dioxide BUN Creatinine Estimated GFR BUN/Creatinine Ratio Glucose Hemoglobin A1c > 14.0 H Lactate Calcium Total Bilirubin AST ALT Alkaline Phosphatase Total Protein Albumin Globulin Albumin/Globulin Ratio Lipase Serum , Qual Negative Urine Color Urine Appearance Urine pH Ur Specific [place] Urine Protein Urine Glucose (UA) Urine Ketones Urine Occult Blood Urine Nitrate Urine Bilirubin Urine Urobilinogen Ur Leukocyte Esterase Urine RBC Urine WBC Ur Squamous Epith Cells Urine Bacteria Urine Yeast Ur Culture Indicated? Nasal Screen MRSA (PCR) Ketones 06/01/19 06/01/19 06/01/19 10:29 10:29 10:29 WBC 25.0 H RBC 4.84 Hgb 14.7 Hct 45.5 MCV 93.9 MCH 30.3 MCHC 32.3 RDW 18.2 H Plt Count 588 H Neut % (Auto) 90.9 H Lymph % (Auto) 4.6 L [place] % (Auto) 3.9 Eos % (Auto) 0.0 L Baso % (Auto) 0.6 Neut # (Auto) 37450 H Lymph # (Auto) 1100 [place] # (Auto) 1000 H Eos # (Auto) 0 Baso # (Auto) 200 H ABG pH ABG pCO2 ABG pO2 ABG HCO3 ABG Total CO2 ABG O2 Saturation ABG Base Excess FiO2 Sodium 140 Potassium 4.0 Chloride 90 L Carbon Dioxide < 5 L* BUN 10 Creatinine 1.30 H Estimated GFR 48.4 L BUN/Creatinine Ratio 7.7 Glucose 537 H* Hemoglobin A1c Lactate 6.8 H* Calcium 8.9 Total Bilirubin 0.7 AST 109 H ALT 13 Alkaline Phosphatase 164 H Total Protein 9.5 H Albumin 5.5 H Globulin 4.0 Albumin/Globulin Ratio 1.4 Lipase Serum , Qual Urine Color Urine Appearance Urine pH Ur Specific [place] Urine Protein Urine Glucose (UA) Urine Ketones Urine Occult Blood Urine Nitrate Urine Bilirubin Urine Urobilinogen Ur Leukocyte Esterase Urine RBC Urine WBC Ur Squamous Epith Cells Urine Bacteria Urine Yeast Ur Culture Indicated? Nasal Screen MRSA (PCR) Ketones 19.33 H 06/01/19 06/01/19 06/01/19 13:05 13:55 13:55 WBC RBC Hgb Hct MCV MCH MCHC RDW Plt Count Neut % (Auto) Lymph % (Auto) [place] % (Auto) Eos % (Auto) Baso % (Auto) Neut # (Auto) Lymph # (Auto) [place] # (Auto) Eos # (Auto) Baso # (Auto) ABG pH ABG pCO2 ABG pO2 ABG HCO3 ABG Total CO2 ABG O2 Saturation ABG Base Excess FiO2 Sodium Potassium Chloride Carbon Dioxide BUN Creatinine Estimated GFR BUN/Creatinine Ratio Glucose Hemoglobin A1c Lactate 1.6 Calcium Total Bilirubin AST ALT Alkaline Phosphatase Total Protein Albumin Globulin Albumin/Globulin Ratio Lipase Serum , Qual Urine Color Yellow Urine Appearance Clear Urine pH 5.5 Ur Specific [place] 1.020 Urine Protein 2+ H Urine Glucose (UA) 1+ H Urine Ketones 3+ H Urine Occult Blood 1+ H Urine Nitrate Negative Urine Bilirubin Negative Urine Urobilinogen 0.2 Ur Leukocyte Esterase Negative Urine RBC 1-5/hpf Urine WBC 1-5/hpf Ur Squamous Epith Cells 1-5 /hpf Urine Bacteria None seen Urine Yeast 5-10/hpf H Ur Culture Indicated? Specimen cultured Nasal Screen MRSA (PCR) Negative for mrsa Ketones 06/01/19 06/01/19 06/01/19 14:00 18:20 18:20 WBC 16.1 H RBC 3.54 L Hgb 10.7 L Hct 31.3 L MCV 88.6 D MCH 30.1 MCHC 34.0 RDW 18.1 H Plt Count 404 H Neut % (Auto) 81.5 H Lymph % (Auto) 9.2 L [place] % (Auto) 8.9 Eos % (Auto) 0.0 L Baso % (Auto) 0.4 Neut # (Auto) 35187 H Lymph # (Auto) 1500 [place] # (Auto) 1400 H Eos # (Auto) 0 Baso # (Auto) 100 ABG pH ABG pCO2 ABG pO2 ABG HCO3 ABG Total CO2 ABG O2 Saturation ABG Base Excess FiO2 Sodium 141 Potassium 3.1 L Chloride 107 Carbon Dioxide 9 L* BUN 11 Creatinine 0.80 Estimated GFR > 60.0 BUN/Creatinine Ratio 13.8 Glucose 303 H D Hemoglobin A1c Lactate Calcium 7.0 L Total Bilirubin AST ALT Alkaline Phosphatase Total Protein Albumin Globulin Albumin/Globulin Ratio Lipase 172 Serum , Qual Urine Color Urine Appearance Urine pH Ur Specific [place] Urine Protein Urine Glucose (UA) Urine Ketones Urine Occult Blood Urine Nitrate Urine Bilirubin Urine Urobilinogen Ur Leukocyte Esterase Urine RBC Urine WBC Ur Squamous Epith Cells Urine Bacteria Urine Yeast Ur Culture Indicated? Nasal Screen MRSA (PCR) Ketones 06/01/19 06/01/19 06/02/19 18:20 23:25 04:05 WBC 9.1 RBC 3.56 L Hgb 11.0 L Hct 32.3 L MCV 90.9 MCH 30.9 MCHC 34.0 RDW 18.2 H Plt Count 389 Neut % (Auto) 74.2 Lymph % (Auto) 17.6 L [place] % (Auto) 7.1 Eos % (Auto) 0.7 L Baso % (Auto) 0.4 Neut # (Auto) 6800 Lymph # (Auto) 1600 [place] # (Auto) 700 Eos # (Auto) 100 Baso # (Auto) 0 ABG pH ABG pCO2 ABG pO2 ABG HCO3 ABG Total CO2 ABG O2 Saturation ABG Base Excess FiO2 Sodium 136 L 134 L Potassium 3.5 4.5 Chloride 107 106 Carbon Dioxide 17 L 18 L BUN 9 10 Creatinine 0.50 L 0.40 L Estimated GFR > 60.0 > 60.0 BUN/Creatinine Ratio 18.0 25.0 H Glucose 168 H D 153 H Hemoglobin A1c Lactate Calcium 6.9 L 7.6 L Total Bilirubin AST ALT Alkaline Phosphatase Total Protein Albumin Globulin Albumin/Globulin Ratio Lipase Serum , Qual Urine Color Urine Appearance Urine pH Ur Specific [place] Urine Protein Urine Glucose (UA) Urine Ketones Urine Occult Blood Urine Nitrate Urine Bilirubin Urine Urobilinogen Ur Leukocyte Esterase Urine RBC Urine WBC Ur Squamous Epith Cells Urine Bacteria Urine Yeast Ur Culture Indicated? Nasal Screen MRSA (PCR) Ketones 06/02/19 04:05 WBC RBC Hgb Hct MCV MCH MCHC RDW Plt Count Neut % (Auto) Lymph % (Auto) [place] % (Auto) Eos % (Auto) Baso % (Auto) Neut # (Auto) Lymph # (Auto) [place] # (Auto) Eos # (Auto) Baso # (Auto) ABG pH ABG pCO2 ABG pO2 ABG HCO3 ABG Total CO2 ABG O2 Saturation ABG Base Excess FiO2 Sodium 135 L Potassium 3.4 Chloride 108 H Carbon Dioxide 20 L BUN 8 Creatinine 0.40 L Estimated GFR > 60.0 BUN/Creatinine Ratio 20.0 Glucose 154 H Hemoglobin A1c Lactate Calcium 7.9 L Total Bilirubin AST ALT Alkaline Phosphatase Total Protein Albumin Globulin Albumin/Globulin Ratio Lipase Serum , Qual Urine Color Urine Appearance Urine pH Ur Specific [place] Urine Protein Urine Glucose (UA) Urine Ketones Urine Occult Blood Urine Nitrate Urine Bilirubin Urine Urobilinogen Ur Leukocyte Esterase Urine RBC Urine WBC Ur Squamous Epith Cells Urine Bacteria Urine Yeast Ur Culture Indicated? Nasal Screen MRSA (PCR) Ketones Discharge Plan Discharge Plan Patient Disposition: Home Discharge orders & Medications Prescriptions: New Lantus Solostar U-100 Insulin 100 unit/mL (3 mL) Insulin Pen 10 unit subcut BEDTIME 30 Days RF: 0 Continued Luisa 14 mcg/24 hour (3 years) Intrauterine Device 1 ea Intrauterine DIRECTED RF: 0 clonazepam 0.5 mg tablet 0.5 mg PO BID RF: 0 methotrexate sodium 2.5 mg tablet 15 mg PO MOTU RF: 0 hydroxychloroquine 200 mg tablet 200 mg PO DAILY RF: 0 albuterol sulfate [ProAir HFA] 90 mcg/actuation HFA aerosol inhaler 1 - 2 puff INHALATION Q4-6H PRN (Reason: Shortness Of Breath) RF: 0 insulin lispro [Humalog KwikPen Insulin] 100 unit/mL insulin pen 8 unit SUBCUT TIDWM RF: 0 sulfasalazine 500 mg tablet 1,000 mg PO BID RF: 0 lisinopril 10 mg tablet 10 mg PO DAILY RF: 0 piroxicam 20 mg capsule 20 mg PO DAILY RF: 0 Se-Atilio 19 (with docusate) 29 mg iron- 1 mg-25 mg tablet 1 tab PO DAILY RF: 0 Discontinued insulin glargine 100 unit/mL (3 mL) insulin pen 20 units subcut BID RF: 0 Diet/Activity/Treatments Diet: Carb-consistent/Diabetic Activity: as tolerated Visit Report/Discharge Packet Visit Report Forms: Patient Portal/API, Stroke Signs & Symptoms Quality VTE Deep Vein Thrombosis/Pulmonary Embolism Present on Admission: No
[2019-06-02] MEDS: INSULIN GLARGINE 100 UNIT/ML 3ML PEN 10 UNIT SUBCUT (10:43)
[2019-06-02] MEDS: SODIUM CHLORIDE 0.9% FLUSH 10 ML IV (10:43)
--- NOTE | 2019-06-02 12:32 | PC.NURSE ---
Insulin gtt titrated to off 1 hour after lantus administration. AC CBG 341. Called to Dr. Iniguez and reported BG. Awaiting orders.
[2019-06-02] MEDS: INSULIN ASPART 100 UNIT/ML INSULN PEN 6 UNIT SUBCUT (13:07)
--- NOTE | 2019-06-02 13:26 | PC.NURSE ---
Pt provided with DC paperwork and educational materials. Reviewed importance of checking BGs, insulin administration, sick day plan, ETOH cessation. Pt verbalized understanding and states she has no other questions. She states she has a doctors appointment already scheduled tomorrow at a clinic in [place]. Returned pt's own med from pharmacy and provided rx for lantus. Removed central line and PIV. Pt tolerated well. PUSHER OPERATOR to bedside just prior to d/c to discuss resources for pt. Pt left in no acute distress at 1330. Ambulated independently with steady gait to exit, escorted by PUSHER OPERATOR.
--- NOTE | 2019-06-02 13:56 | CM.SWNOTE ---
VIDEO GAME CREATOR Note: Received SS/VIDEO GAME CREATOR referral to meet with patient for ETOH abuse. Patient is a 28yr old female admitted to [facility] with nausea/vomiting/sob x1 day. PCP is at [facility] residency clinic. Primary payor is 1)Medicaid 2)Self Pay. Met with patient explained VIDEO GAME CREATOR role. Patient alert and oriented during visit. Patient reports that she was diagnosed with diabetes approximately 4yrs ago. Patient on insulin approximately (5x per day). Patient reports that she is active with 12 step programs for alcoholism. Patient reports that she has not had anything to drink for awhile until this week. Patient reports that prior to recent drink it has been months? Patient denies using any other substances. Patient eager to go home today and does not feel that she needs to go to inpatient rehabilitation for alcohol dependence. She acknowledges this current event as a slip. Patient provided with community resources for ETOH and mental health. Patient denies ever being diagnosed with a MH disorder but acknowledges with her diagnosis of diabetes that she probably does. Patient denies any additional needs. Dr. Iniguez and MARIFER updated. P: Home today. Community resources provided for MH and ETOH inpateint and outpatient. JE Lopez Discharge Planning/Care Management CM Discharge Assessment Start: 06/02/19 13:50 Freq: Status: Active Protocol: Document 06/02/19 13:50 KJS (Rec: 06/02/19 13:56 KJS [id number]) Discharge Planning Assessment Assigned Restaurant Area Director Sharyn Jauregui Contact Information Madhav Rios phone# Advance Directives? No History Provided By Patient,Medical Record Prior Living Arrangements Apartment/Condo Household Members significant other,children Independent with ADL's Yes Is patient alert and oriented? Yes Comment Patient reports being active with 12 step program (s). Comment Reviewed chart. Pt w/ longstanding h/o ETOH abuse, here w/out of control blood sugars and presents to the ER in w/d process. According to MARIFER Acosta, pt has been discussing drug rehab w/ her. Pt has been to inpt treatment in the past. This VIDEO GAME CREATOR attempted CD assessment today and pt woke up shortly then drifted into a deep sleep. Will attempt tomorrow. Discharge Plan Home Transportation Arrangement Friend picked her up Additional Comment DCP unknown at this time. Attempt at inpt drug treatment vs close outpt plan ? depending on pt's permission and request. Following closely. Review Status In Process Next Review Type Continued Stay Review
== END 2019-06-02 13:30 | disposition home or self-care (01) | DRG 639 ==
LOC: ED 12:35 → ICU 12:42
PROVIDERS: Nurse Practitioner Family; Admitting Provider Internal Medicine; Emergency Provider Emergency Medicine; Visit Provider Internal Medicine
DX: E10.10 Type 1 diabetes mellitus with ketoacidosis without coma (principal); T38.3X6A Underdosing of insulin and oral hypoglycemic [antidiabetic] drugs, initial encounter; Z91.128 Patient's intentional underdosing of medication regimen for other reason; F10.20 Alcohol dependence, uncomplicated; M06.9 Rheumatoid arthritis, unspecified; I10 Essential (primary) hypertension; E87.6 Hypokalemia; F41.1 Generalized anxiety disorder; Z79.4 Long term (current) use of insulin; Z87.891 Personal history of nicotine dependence
CPT/HCPCS: 36415; 36556; 36592; 36600; 71045; 80048; 80053; 81001; 82009; 82805; 82962; 83036; 83605; 83690; 84703; 85025; 87040; 87077; 87086; 87797; 93005; 96361; 96365; 96375; 99285; 99291; 99292; J2060; J2405; J3480; J8610

== ENCOUNTER 2019-07-29 19:12 | Emergency (ER) | payer MEDICAID, SELFPAY ==
[2019-06-01 14:07] VITALS: BMI 18.1
[2019-07-29 19:00] VITALS: BP 108/54; PULSE 102; RESP 22; TEMP 36.3; O2SAT 100
[2019-07-29 19:10] VITALS: BP 114/72; PULSE 108; RESP 18; O2SAT 100
--- NOTE | 2019-07-29 19:18 | DI.CT.S_ITS ---
PROCEDURE: CT CHEST ABD PEL W CON INDICATIONS: Trauma TECHNIQUE: After the administration of intravenous contrast, 5 mm thick sections acquired from the lung apices to the symphysis. 2.5 mm thick coronal and sagittal reformats were acquired. Additional 7 mm thick coronal maximum intensity projection (MIP) reformats acquired through the lungs. Optional 10-minute delayed imaging may be performed from the kidneys to the bladder. For radiation dose reduction, the following was used: automated exposure control, adjustment of mA and/or kV according to patient size. COMPARISON: [facility], CT, CT KUB, 11/06/2017, 9:46. [facility], US, US ABDOMEN LIMITED, 02/15/2019, 11:55. FINDINGS: Image quality: Excellent. CHEST: Lungs: No pulmonary contusions or lacerations. No acute airspace opacities. No pneumothorax or hemothorax. Central and peripheral airways appear patent and normal in caliber. Mediastinum: No mediastinal hematomas. Heart size is normal. No pericardial effusion. Thoracic aorta and pulmonary arteries demonstrate normal size and enhancement. No mediastinal or hilar adenopathy. Esophagus is normal in caliber. No hiatal hernia. Chest wall: No rib fractures. No subcutaneous emphysema. No axillary or supraclavicular adenopathy. Thyroid gland is unremarkable. ABDOMEN: Solid organs: Liver is enlarged with steatosis, without lacerations. Gallbladder is unremarkable. Biliary system is non-dilated. Pancreas enhances normally, without transection. Spleen is normal in size and enhancement, without lacerations. No adrenal hematomas. Both kidneys enhance normally, without hydronephrosis or lacerations. There is asymmetric left renal atrophy. Nonobstructing left renal calcification is unchanged. The Peritoneum and bowel: No free fluid or air. Unenhanced bowel loops demonstrate normal wall thickness and caliber. Nodes and vessels: No retroperitoneal or mesenteric adenopathy. Aorta and inferior vena cava are normal in size and enhancement. Miscellaneous: No ventral hernias. PELVIS: Genitourinary: Bladder wall thickness is normal. Miscellaneous: No inguinal hernias or adenopathy. Bones: Pelvic ring and hip joints appear intact. No vertebral compression fractures. IMPRESSION: 1. No acute osseous or visceral traumatic injury. Dictated by: Brit Pereira M.D. on 07/29/2019 at 20:09 Approved by: Brit Pereira M.D. on 07/29/2019 at 20:13
--- NOTE | 2019-07-29 19:18 | DI.CT.S_ITS ---
PROCEDURE: CT HEAD/BRAIN WO CON INDICATIONS: Trauma TECHNIQUE: Noncontrast 4.5 mm thick angled axial sections acquired from the foramen magnum to the vertex, with coronal and sagittal reformats. For radiation dose reduction, the following was used: automated exposure control, adjustment of mA and/or kV according to patient size. COMPARISON: CT, CT BRAIN WO CON, 04/22/2015, 11:59. FINDINGS: Image quality: Excellent. CSF spaces: Basal cisterns are patent. No extra-axial fluid collections. Ventricles are normal in size and shape. Brain: No midline shift. No intracranial masses or hemorrhage. Rae-white matter interface is normal. Skull and face: Calvarium and visualized facial bones are intact, without suspicious lesions. Sinuses: Visualized sinuses and mastoids are clear. IMPRESSION: 1. No acute intracranial process. Dictated by: Brit Pereira M.D. on 07/29/2019 at 19:45 Approved by: Brit Pereira M.D. on 07/29/2019 at 19:47
--- NOTE | 2019-07-29 19:18 | DI.CT.S_ITS ---
PROCEDURE: CT CERVICAL SPINE WO CON INDICATIONS: Trauma TECHNIQUE: Noncontrast 3 mm thick sections acquired from the skull base to the T4 level. Sagittal and coronal reformats were then constructed. For radiation dose reduction, the following was used: automated exposure control, adjustment of mA and/or kV according to patient size. COMPARISON: [facility], CT, CT CERVICAL SPINE WITHOUT CONTRAST, 07/23/2018, 1:30. FINDINGS: Image quality: Excellent. Bones: No fractures or dislocations. Visualized superior ribs are intact. Mild straightening of normal cervical curvature. Soft tissues: Prevertebral soft tissues are normal in thickness. No paravertebral hematomas. No apical pneumothoraces. IMPRESSION: No visualized fracture. Dictated by: Brit Pereira M.D. on 07/29/2019 at 19:58 Approved by: Brit Pereira M.D. on 07/29/2019 at 20:00
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
[2019-07-29 19:30] LABS: Add Manual Diff / Slide Review NO; Basophils Absolute Auto 100 /uL (0-100); Eosinophils Absolute Auto 100 /uL (0-450); Eosinophils Percent Auto 0.9 % (2-4); Hematocrit 39.5 % (36-46); Hemoglobin 13.2 g/dL (12.0-16.0); Lymphocytes Absolute Auto 2600 /uL (1100-4500); Lymphocytes Percent Auto 25.3 % (25-40); Mean Corpuscular HGB Conc 33.5 % (30-36); Mean Corpuscular Hemoglobin 30.8 PG (26-34); Monocytes Absolute Auto 400 /uL (0-900); Monocytes Percent Auto 3.4 % (3-14); Neutrophils Absolute Auto 7100 /uL (1500-7000); Neutrophils Percent Auto 69.4 % (50-75); Platelet Count 528 X10^3/uL (150-400); Red Blood Cell Count 4.29 X10^6/uL (4.0-5.2); White Blood Cell Count 10.2 X10^3/uL (4.5-11.0)
[2019-07-29 19:44] LABS: Alanine Aminotransferase 11 IU/L (<35); Albumin 4.4 g/dL (3.5-5.0); Albumin Globulin Ratio 1.3 (1.0-2.8); Alkaline Phosphatase 108 U/L (38-126); Aspartate Aminotransferase 74 IU/L (14-36); Bilirubin Total 0.3 mg/dL (0.2-1.3); Blood Urea Nitrogen 14 mg/dL (7-17); Calcium 9.5 mg/dL (8.4-10.2); Carbon Dioxide 20 mmol/L (22-32); Chloride 96 mmol/L (98-107); Estimated Glomerular Filt Rate > 60.0 mL/min (>60); Ethanol (ETOH) 240 mg/dL; Globulin 3.4 g/dL (1.7-4.1); HEMOLYSIS < 15 (0-50); Lipase 42 U/L (23-300); Potassium 3.8 mmol/L (3.4-5.1); Sodium 135 mmol/L (137-145); Total Protein 7.8 g/dL (6.3-8.2)
[2019-07-29 19:45] VITALS: BP 104/59; PULSE 90; RESP 18; O2SAT 99
[2019-07-29 19:57] LABS: HCO3 VBG 23 mmol/L (23-28); PCO2 VBG 41.1 mmHg (45-50); PO2 VBG 72 mmHg (35-45); Total CO2 VBG 24 mmol/L (24-29); pH VBG 7.35 (7.33-7.43)
[2019-07-29 19:57] LABS: Glucose 560 mg/dL (70-100)
[2019-07-29 19:58] LABS: Oxygen Saturation VBG 93 % (70-75)
[2019-07-29] MEDS: ONDANSETRON 4 MG/2 ML INJ IV (20:07)
[2019-07-29 20:19] LABS: Pregnancy Test Serum,Qual Negative (Negative)
--- NOTE | 2019-07-29 20:45 | DI.CT.S_ITS ---
PROCEDURE: CT FACIAL BONES WO CON INDICATIONS: facial pain, increased swelling TECHNIQUE: Noncontrast 2.5 mm thick axial images acquired from the mandible through the frontal sinuses, with coronal and sagittal reformatting. For radiation dose reduction, the following was used: automated exposure control, adjustment of mA and/or kV according to patient size. COMPARISON: [facility], CT, CT FACIAL BONES WITHOUT CONTRAST, 07/23/2018, 1:30. FINDINGS: Image quality: Excellent. Bones and teeth: Orbital moeller are intact. Sinus moeller show no fracture or deformity. Nasal bones and septum are intact. Visualized portions of the mandible demonstrate no fractures or subluxation. Zygomatic arches are intact. Pterygoid plates are intact. Visualized portions of the skull base and auditory canals are intact. Sinuses: Paranasal sinuses are aerated, with minimal pansinus mucosal thickening. Mastoid air cells are aerated. Soft tissues: Right facial soft tissue edema. There is subcutaneous fat stranding without focal fluid collection. No enlarged lymph nodes. No soft tissue lacerations or debris. Vascular: Visualized vascular structures appear normal in the absence of contrast. Bony vascular foramina and canals are intact. IMPRESSION: Right facial soft tissue edema subcutaneous fat stranding suggestive of infection/inflammation. No abscess or focal fluid collection. Dictated by: Brit Pereira M.D. on 07/29/2019 at 21:31 Approved by: Brit Pereira M.D. on 07/29/2019 at 21:36
[2019-07-29] MEDS: LACTATED RINGERS 1,000 ML 1000 ML IV (20:47)
[2019-07-29] MEDS: KETOROLAC 60 MG/2 ML VIAL 15 MG IV (22:05)
[2019-07-29] MEDS: TET,DIPH,PERTUSS(ACELL),VAC/PF 0.5 ML SYRINGE IM (22:06)
[2019-07-29 22:24] VITALS: BP 104/65; PULSE 77; RESP 14; O2SAT 99
--- NOTE | 2019-07-31 15:14 | PC.NURSE ---
Pt called ED requesting a work note for her original visit on 07/28. I told the pt that unfortunately we cannot provide a work note after the initial visit, and that if she needed proof that she would have to contact medical records for a copy of her chart
== END 2019-07-29 22:24 | disposition home or self-care (01) ==
PROVIDERS: Emergency Provider Emergency Medicine
DX: Z00.8 Encounter for other general examination (principal); E11.65 Type 2 diabetes mellitus with hyperglycemia; Z79.4 Long term (current) use of insulin; S00.83XA Contusion of other part of head, initial encounter; S29.019A Strain of muscle and tendon of unspecified wall of thorax, initial encounter; V49.60XA Unspecified car occupant injured in collision with unspecified motor vehicles in traffic accident, initial encounter; Z23 Encounter for immunization
CPT/HCPCS: 36415; 70450; 70486; 71260; 72125; 74177; 80053; 80320; 82805; 82962; 83690; 84703; 85025; 90471; 93005; 96361; 96374; 96375; 99284; 90715; J1885; J2405; Q9967